=== PATIENT | female | born 1955 | race Caucasian/White ===

== ENCOUNTER 2021-01-13 14:41 | Outpatient (CLI) | payer BC, SELFPAY | END 2021-01-13 14:42 | disposition home or self-care (01) | LOC: ANHCOVIDVC 14:41 | PROVIDERS: PCP Family Medicine | DX: Z23 Encounter for immunization (principal) | CPT/HCPCS: 0001A; 91300 ==

== ENCOUNTER 2021-02-03 14:43 | Outpatient (CLI) | payer BC, SELFPAY | END 2021-02-03 14:44 | disposition home or self-care (01) | LOC: ANHCOVIDVC 14:43 | PROVIDERS: PCP Family Medicine | DX: Z23 Encounter for immunization (principal) | CPT/HCPCS: 0002A; 91300 ==

== ENCOUNTER 2021-03-13 13:38 | Outpatient (CLI) | payer BC, SELFPAY ==
--- NOTE | ~2021-03-13 | MR_ITS ---
EXAMINATION: MR lumbar spine wo con DATE: 03/13/2021 14:54 INDICATION: Low back pain. TECHNIQUE: Magnetic resonance imaging (MRI) of the lumbar spine was performed without intravenous con trast. Sequences included sagittal T2-weighted FSE, sagittal T2-weighted FS FSE, sagittal T1-weighted FSE, and axial T2-weighted FSE. COMPARISON: None FINDINGS: Bone alignment is normal. There is mild chronic height loss of T10 and T11 vertebral bodies . Intervertebral disc heights are normal. The distal spinal cord signal intensity is normal. The conu s medullaris is at L1-L2. There are peripelvic cysts in the kidneys. The following disc levels are sp ecifically discussed: L1-L2: The disc does not extend beyond the endplate margin. There is mild bilateral facet joint osteo arthritis. There is no neural foraminal stenosis. There is no central canal stenosis. L2-L3: The disc is bulging. There is mild bilateral facet joint osteoarthritis. There is mild left ne ural foraminal stenosis. There is mild central canal stenosis. L3-L4: The disc is bulging. There is severe bilateral facet joint osteoarthritis. There is no neural foraminal stenosis. There is mild central canal stenosis. L4-L5: There is a right foraminal protrusion. There is severe bilateral facet joint osteoarthritis. T here is mild right neural foraminal stenosis. There is no central canal stenosis. L5-S1: The disc is mildly bulging. There is severe bilateral facet joint osteoarthritis. There is mil d bilateral neural foraminal stenosis. There is no central canal stenosis. IMPRESSION: 1. Mild lumbar spondylosis. Reviewed, dictated and finalized at location A. IMPRESSION: 1. Mild lumbar spondylosis.
== END 2021-03-13 13:39 | disposition home or self-care (01) ==
PROVIDERS: PCP Family Medicine; Visit Provider Orthopaedic Surgery
DX: M47.896 Other spondylosis, lumbar region (principal)
CPT/HCPCS: 72148

== ENCOUNTER 2021-04-20 15:03 | Outpatient (CLI) | payer BC, SELFPAY ==
--- NOTE | ~2021-04-20 | US_ITS ---
EXAMINATION: US renal BI EXAM DATE: 04/20/2021 15:33 INDICATION: N28.1 - Cyst of kidney, acquired. TECHNIQUE: Multiple grayscale and Doppler images of the kidneys were obtained (by a technologist who performed the scan) and subsequently reviewed. There is no prior study for comparison. FINDINGS: Right kidney: There is normal contour and echogenicity. It measures 12.7 x 5.1 x 5.2 centimeters. Th ere is a cyst measuring 1 cm. There is no hydronephrosis. Left kidney: There is normal contour and echogenicity. It measures 12.3 x 5.9 x 5.6 centimeters. Pro bable left renal peripelvic cysts. There is no hydronephrosis. Bladder unremarkable. The ureteral jets were identified. IMPRESSION: 1. Renal cysts. Reviewed, dictated and finalized at location A. IMPRESSION: 1. Renal cysts.
== END 2021-04-20 15:04 | disposition home or self-care (01) ==
LOC: ANHIMG 15:05
PROVIDERS: PCP Family Medicine; Visit Provider Family Medicine
DX: N28.1 Cyst of kidney, acquired (principal)
CPT/HCPCS: 76775

== ENCOUNTER 2021-08-19 15:26 | Emergency (ER) | payer OTHER, SELFPAY ==
[2021-08-19 15:37] VITALS: BP 188/77; PULSE 80; RESP 14; TEMP 36.8; O2SAT 99
[2021-08-19 17:02] LABS: Basophils Absolute Auto 0.1 K/mm3 (0.0-0.1); Eosinophils Absolute Auto 0.8 K/mm3 (0-0.3); Eosinophils Percent Auto 9.3 % (0-4.4); Hematocrit 40.5 % (37.0-47.0); Hemoglobin 13.1 g/dL (12.0-15.0); Immature Granulocyte Absolute 0.06 K/mm3 (0.00-0.031); Immature Granulocyte Percent A 0.7 % (0-0.5); Lymphocytes Absolute Auto 2.38 K/mm3 (0.9-3.2); Lymphocytes Percent Auto 27.3 % (18.3-44.2); Mean Corpuscular HGB Conc 32.3 g/dl (32-36); Mean Corpuscular Hemoglobin 29.5 pg (26-34); Mean Corpuscular Volume 91.2 fl (80-100); Mean Platelet Volume 8.8 fl (7.4-10.4); Monocytes Absolute Auto 0.9 K/mm3 (0.1-0.6); Monocytes Percent Auto 10.1 % (2.6-8.5); Neutrophils Absolute Auto 4.5 K/mm3 (1.3-6.7); Neutrophils Percent Auto 51.6 % (45.5-73.1); Platelet Count Result 492 k/mm3 (150-375); Red Blood Count 4.44 M/mm3 (4.2-5.4); Red Cell Distribution Width 13.6 % (11.5-14.5); White Blood Count 8.7 K/mm3 (4.5-10.0)
[2021-08-19 17:15] LABS: Add Urine Microscopic? YES; Anion Gap 8 mmol/L (8-16); Appearance Urine Cloudy (Clear); Bacteria Urine Trace /hpf; Bilirubin Urine Negative (Negative); Blood Urea Nitrogen 11 mg/dL (7-17); Blood Urine Negative (Negative); Calcium 9.7 mg/dL (8.4-10.2); Carbon Dioxide 26 mmol/L (22-30); Chloride 107 mmol/L (98-107); Color Urine Yellow (Yellow); Estimated CRCL calculation 71 ml/min; Estimated Glomerular Filt Rate > 60; Glucose 105 mg/dL (65-110); Glucose Urine UA Negative (Negative); Ketones Urine Trace mg/dL (Negative); Leukocyte Esterase Ur Negative LEU/UL (Negative); Mucus Urine Few /lpf; Nitrate Urine Negative (Negative); Potassium 3.9 mmol/L (3.4-5.0); Protein Urine Negative (Negative); RBC Urine 0-2 /hpf (0-2); Sodium 141 mmol/L (137-145); Squamous Epithelial Cell Urine Few /hpf (Few); WBC Urine 0-3 /hpf
--- NOTE | 2021-08-19 18:04 | ED.BACK ---
HPI - Back Pain/Injury General Chief Complaint: Back Pain/Injury Stated Complaint: left flank pain Time Seen by Provider: 08/19/21 16:14 Source: patient Mode of arrival: ambulatory Limitations: no limitations History of Present Illness HPI Narrative: 66-year-old with a history of chronic low back pain, hypertension here with complaints of low back pain for past few days. She denies any falls. She is worried about UTI. She denies any fever or chills. No history of bladder or bowel incontinence. She also complains of intense itching on her back and her thighs. See MD elicited complaint: back pain Pertinent past history: prior back pain Onset (ago): day(s) (3) Severity: moderate Similar Symptoms Previously: Yes Quality: dull Location: lumbar spine Radiation: none Exacerbating factors: none Relieving factors: none Associated symptoms: denies other symptoms Related Data Home Medications Medication Instructions Recorded Confirmed methylcellulose (laxative) 500 mg 500 mg PO BID 08/13/20 tablet Saccharomyces boulardii 250 mg 250 mg PO BID 06/19/21 capsule Allergies Allergy/AdvReac Type Severity Reaction Status Date / Time tetracycline Allergy Mild Unknown Verified 06/19/21 13:52 Review of Systems Review of Systems: All systems reviewed & are unremarkable except as noted in HPI and below Constitutional: Constitutional: Reports no additional constitutional complaints Eyes: Eyes: Reports no additional eye complaints ENT: Reports system reviewed and no additional complaints, except as documented Cardiovascular: Cardiovascular: Reports no additional cardiovascular complaints Respiratory: Respiratory: Reports no additional respiratory complaints Gastrointestinal: Gastrointestinal: Reports no additional gastrointestinal complaints Musculoskeletal: Musculoskeletal: Reports as per HPI Integumentary/Breasts: Skin/Breast: Reports pruritus Neurologic: Reports system reviewed and no additional complaints, except as documented [facility] Past Medical History Medical History Carpal tunnel syndrome of left wrist DDD (degenerative disc disease), lumbar Ganglion cyst HLD (hyperlipidemia) Obesity, Class III, BMI 40-49.9 (morbid obesity) Positive JOSE (antinuclear antibody) Renal cyst Thrombocytosis Surgical History Surgical History H/O shoulder surgery (~2018) left History of carpal tunnel surgery (~2018) Family History Family History Mother Diabetes mellitus Hypertension Father Heart attack Social History Social History Smoking status: Never smoker Second hand tobacco smoke exposure: No Alcohol intake: never Substance use: never Substance use type: does not use Gender identity (if verbalized by the patient): Female Sexual Orientation (if Verbalized by the Patient): Straight or Heterosexual Exam Narrative: GENERAL: Well-appearing, Obese, and in no acute distress. HEAD: Normocephalic, atraumatic. EYES: PERRLA and EOMI. NECK: Supple. CHEST: Clear to auscultation. No respiratory distress. HEART: Regular rate and rhythm. No murmur heard. Normal peripheral pulses. ABDOMEN: Soft, nontender, nondistended, normal active bowel sounds. EXTREMITIES: Normal range of motion. No edema. Back Surgical scar present ,no vertebral point tnderness SKIN: Warm, dry, no rash. NEURO: No focal deficits. Alert and oriented x3. PSYCH: Normal mood and affect. Course Course Emergency Course: informed pt about her lab work , advised her to continue home medication, take medications as prescribed. Vital Signs Vital signs: Vital Signs Temperature 36.8 C 08/19/21 15:37 Pulse Rate 80 08/19/21 15:37 Respiratory Rate 14 08/19/21 15:37 Blood Pressure 188/77 H 08/19/21 15:37 Pulse Oxi
== END 2021-08-19 18:15 | disposition home or self-care (01) ==
PROVIDERS: Emergency Provider Family Medicine; PCP Family Medicine
DX: M54.50 Low back pain, unspecified (principal); E78.5 Hyperlipidemia, unspecified
CPT/HCPCS: 36415; 80048; 81001; 85025; 99283

== ENCOUNTER 2022-02-20 11:02 | Inpatient (IN) | payer OTHER, SELFPAY ==
--- NOTE | ~2022-02-20 | XR_ITS ---
EXAMINATION: XR surgery orthopedic DATE: 02/22/2022 13:30 CDT INDICATION: ORIF LEFT PATELLA . TECHNIQUE: 2 fluoroscopic images of the left were obtained during intraoperative ORIF performed by ida greer surgeon. I was not present in the operating room. Fluoroscopy exposure time was 3 seconds. Cumulati ve dose 0.34 mGy. COMPARISON: X-ray and CT left knee 02/20/2022. FINDINGS: AP and lateral views of the left knee demonstrate the known left patellar fracture, with decreased di straction. IMPRESSION: Fluoroscopic documentation of left patellar ORIF. Reviewed, dictated and finalized at location K.
--- NOTE | ~2022-02-20 | CT_ITS ---
EXAMINATION: CT knee LT wo con DATE: 02/20/2022 13:25 INDICATION: Left patellar fracture TECHNIQUE: High resolution computed tomography (CT) of the left knee was performed without intravenou s contrast. Additional sagittal and coronal reconstructions were performed. Automated exposure contro l and iterative reconstruction technique were employed. The dose-length product was 478.82 mGy-cm. COMPARISON: None FINDINGS: And seen is a transverse fracture extending across the lower pole of the patella. There is comminutio n of the inferior portion of the patella which divided into several smaller fragments without signifi cant displacement. There is additional small fracture fragment associated with the dominant patellar fragment which compresses the cephalad two thirds of the patella and which is proximally distracted a pproximately 1.5 cm from the lower pole fragments. No other fractures identified. Joint spaces in the medial and lateral compartments appear normal on nonweightbearing imaging. Minimal left knee hemarth rosis without layering fat level. Prepatellar soft tissue swelling. IMPRESSION: 1. 1.5 cm distraction of a comminuted patellar fracture as detailed above. Reviewed, dictated and finalized at location A.
--- NOTE | ~2022-02-20 | XR_ITS ---
EXAMINATION: XR knee LT 3V DATE: 02/20/2022 11:24 INDICATION: Left knee dislocation TECHNIQUE: Anteroposterior, oblique and crosstable lateral views of the left knee were obtained COMPARISON: None. FINDINGS: Transverse fracture extending across the lower pole of the patella with 2 cm distraction and mild com minution along the fracture plane. Femur, tibia and fibula remain in normal alignment. Joint spaces a ppear relatively preserved on nonweightbearing imaging. No left knee joint effusion. Mild prepatellar soft tissue swelling. IMPRESSION: 1. 2 cm distraction of a transverse fracture across the lower pole of the patella. Reviewed, dictated and finalized at location A. IMPRESSION: 1. 2 cm distraction of a transverse fracture across the lower pole of the salazar la.
--- NOTE | ~2022-02-20 | XR_ITS ---
EXAMINATION: XR chest 1V portable DATE: 02/20/2022 14:36 INDICATION: Preoperative evaluation with risk factors of hyperlipidemia and hypertension. TECHNIQUE: frontal view of the chest was obtained. COMPARISON: None FINDINGS: The lungs are clear with no focal airspace opacities, pulmonary edema, pleural effusion or pneumothor ax. The cardiomediastinal silhouette is normal. Visualized bones and soft tissues are unremarkable. IMPRESSION: 1. No acute cardiopulmonary disease. Reviewed, dictated and finalized at location A.
[2022-02-20 11:06] VITALS: BP 142/76; PULSE 79; RESP 17; TEMP 36.6; O2SAT 96
--- NOTE | 2022-02-20 12:11 | ED.LOWEXIN ---
HPI - Extremity Injury (Lower) General Chief Complaint: Extremity Injury, Lower Stated Complaint: left knee deformity Time Seen by Provider: 02/20/22 11:35 Related Data Home Medications Medication Instructions Recorded Confirmed Saccharomyces boulardii 250 mg 250 mg PO BID 06/19/21 02/20/22 capsule (Florastor) folic acid 1 mg tablet 1 mg PO QAM supplement 02/20/22 02/20/22 gabapentin 300 mg capsule 600 mg PO TID 02/20/22 02/22/22 methotrexate sodium 2.5 mg tablet 15 mg PO WEEKLY 02/22/22 02/22/22 Allergies Allergy/AdvReac Type Severity Reaction Status Date / Time tetracycline AdvReac Mild yeast Verified 02/22/22 12:05 infection [facility] Past Medical History Medical History (Updated 02/20/22 @ 14:23 by Mary Bowie PA-C) Depression with anxiety Eczema Followed by dermatology at [facility]. On methotrexate. Hyperlipidemia Hypertension Positive antinuclear antibody Renal cyst Thrombocytosis Surgical History Surgical History (Updated 02/20/22 @ 14:20 by Mary Bowie PA-C) History of arthroscopy of left shoulder (~2018) History of carpal tunnel surgery (~2019) Family History Family History Mother Diabetes mellitus Hypertension Father Heart attack Social History Social History (Updated 02/20/22 @ 14:21 by Mary Bowie PA-C) Social History: Surrogate decision-maker: Zohra Bucio, sister. CODE STATUS: Full code. Smoking status: Never smoker Second hand tobacco smoke exposure: No Alcohol intake: never Substance use: never Living arrangements: alone Additional living arrangements comments: Recently . No children. Occupation/Education: retired Spiritual care concerns: No Course Vital Signs Vital signs: Vital Signs Temperature 97.8 F 02/20/22 11:06 Pulse Rate 79 02/20/22 11:06 Respiratory Rate 17 02/20/22 11:06 Blood Pressure 142/76 H 02/20/22 11:06 Pulse Oximetry 96 02/20/22 11:06 Temperature 97.3 F L 02/24/22 14:00 Pulse Rate 81 02/24/22 14:00 Respiratory Rate 18 02/24/22 14:00 Blood Pressure 112/48 L 02/24/22 14:00 Pulse Oximetry 100 02/24/22 14:00 Oxygen Delivery Room Air 02/24/22 08:00 Oxygen Flow Rate 6 02/22/22 15:17 MDM - Extremity Injury (Lower) Lab Data Result diagrams: 02/24/22 06:02 02/24/22 06:02 Labs: Lab Results 02/20/22 02/20/22 02/20/22 Range/Units 12:36 12:36 12:36 WBC 12.5 H (4.5-10.0) K/mm3 RBC 4.76 (4.2-5.4) M/mm3 Hgb 13.7 (12.0-15.0) g/dL Hct 43.6 (37.0-47.0) % MCV 91.6 (80-100) fl MCH 28.8 (26-34) pg MCHC 31.4 L (32-36) g/dl RDW 15.2 H (11.5-14.5) % Plt Count 506 H (150-375) k/mm3 MPV 9.1 (7.4-10.4) fl Immature Gran % (Auto) 0.5 (0-0.5) % Neut % (Auto) 69.1 (45.5-73.1) % Lymph % (Auto) 12.9 L (18.3-44.2) % [place] % (Auto) 6.0 (2.6-8.5) % Eos % (Auto) 10.8 H (0-4.4) % Baso % (Auto) 0.7 (0.2-1.2) % Lymph # (Auto) 1.61 (0.9-3.2) K/mm3 [place] # (Auto) 0.8 H (0.1-0.6) K/mm3 Eos # (Auto) 1.4 H (0-0.3) K/mm3 Baso # (Auto) 0.1 (0.0-0.1) K/mm3 Abs Immat Gran (auto) 0.06 H (0.00-0.031) K/mm3 Absolute Neuts (auto) 8.6 H (1.3-6.7) K/mm3 Absolute Nucleated RBC 0.0 (0.0-0.012) K/mm3 Nucleated RBC % 0.0 (0.0-0.2) % Sodium 142 (137-145) mmol/L Potassium 3.8 (3.4-5.0) mmol/L Chloride 107 (98-107) mmol/L Carbon Dioxide 27 (22-30) mmol/L Anion Gap 8 (8-16) mmol/L BUN 8 (7-17) mg/dL Creatinine 0.80 (0.7-1.0) mg/dL Estim Creat Clear Calc 74 ml/min Estimated GFR > 60 (59 - ) Glucose 107 (65-110) mg/dL Calcium 9.2 (8.4-10.2) mg/dL Magnesium (1.6-2.3) mg/dL Total Bilirubin (0.2-1.3) mg/dL AST (14-36) U/L ALT (6-35) U/L Alkaline Phosphatase (38-126) U/L Total Protein (6.3-8.2) g/dL Albumin (3.5
--- NOTE | 2022-02-20 12:16 | ECG_ITS ---
Measurements Intervals [place] Rate: 63 P: 48 DE: 185 QRS: -1 QRSD: 76 T: 56 QT: 358 QTc: 367 Interpretive Statements SINUS RHYTHM LOW QRS VOLTAGE IN PRECORDIAL LEADS BASELINE ARTIFACT- I, III BORDERLINE ECG Electronically Signed On 02-20-2022 17:00:55 CDT by Emmanuel Rivera D.O.
[2022-02-20] MEDS: HYDROcodone/acetaminophen (*CRX) 5-325 MG TABLET 1 TAB PO ×2 (12:26→15:40)
[2022-02-20 12:44] LABS: Basophils Absolute Auto 0.1 K/mm3 (0.0-0.1); Basophils Percent Auto 0.7 % (0.2-1.2); Eosinophils Absolute Auto 1.4 K/mm3 (0-0.3); Eosinophils Percent Auto 10.8 % (0-4.4); Hematocrit 43.6 % (37.0-47.0); Hemoglobin 13.7 g/dL (12.0-15.0); Immature Granulocyte Absolute 0.06 K/mm3 (0.00-0.031); Immature Granulocyte Percent A 0.5 % (0-0.5); Lymphocytes Absolute Auto 1.61 K/mm3 (0.9-3.2); Lymphocytes Percent Auto 12.9 % (18.3-44.2); Mean Corpuscular HGB Conc 31.4 g/dl (32-36); Mean Corpuscular Hemoglobin 28.8 pg (26-34); Mean Corpuscular Volume 91.6 fl (80-100); Mean Platelet Volume 9.1 fl (7.4-10.4); Monocytes Absolute Auto 0.8 K/mm3 (0.1-0.6); Neutrophils Absolute Auto 8.6 K/mm3 (1.3-6.7); Neutrophils Percent Auto 69.1 % (45.5-73.1); Platelet Count Result 506 k/mm3 (150-375); Red Blood Count 4.76 M/mm3 (4.2-5.4); Red Cell Distribution Width 15.2 % (11.5-14.5); White Blood Count 12.5 K/mm3 (4.5-10.0)
[2022-02-20 12:53] LABS: Anion Gap 8 mmol/L (8-16); Blood Urea Nitrogen 8 mg/dL (7-17); Calcium 9.2 mg/dL (8.4-10.2); Carbon Dioxide 27 mmol/L (22-30); Chloride 107 mmol/L (98-107); Estimated CRCL calculation 74 ml/min; Estimated Glomerular Filt Rate > 60; Glucose 107 mg/dL (65-110); Potassium 3.8 mmol/L (3.4-5.0); Sodium 142 mmol/L (137-145)
[2022-02-20 13:25] LABS: SARS-CoV-2 RNA PCR Negative
--- NOTE | 2022-02-20 13:25 | PM.IMHP ---
H&P: HPI History of Present Illness Date/Time: 02/20/22 13:25 Chief Complaint: Left knee pain after fall. Narrative: This is a 66-year-old female with hypertension, depression, and eczema who presented to the emergency department for evaluation of left knee pain after a fall. Not long prior to arrival she went out onto her back deck to chicken picker a fallen plant. The deck was wet and she was not wearing shoes. Unfortunately when she reentered the home, she slipped on the laminate parminder and fell forward onto her knees with immediate pain in her left knee. She was able to scoot herself to her bedroom to get her cell phone to call for help. Imaging done on arrival to the ER showed a comminuted fracture of the left patella and she is being admitted in this setting. Luckily she sustained no other injuries in the fall and she specifically denies head trauma. At this time her pain is aching and is worse with palpation and attempts to bend the knee. No paresthesias, skin color, or temperature changes distal to the fracture. Review of Systems Review of Systems: 12 systems were reviewed. No fever, chills, or sweats. No recent cold or flu symptoms. No syncope or near syncope. No exertional chest pain or shortness of breath. No nausea or vomiting. She has been battling eczema for the last 8 months or so and was recently started on methotrexate for the same. Except as documented, all other systems were reviewed and are negative PMFSH Past Medical History Medical History (Updated 02/20/22 @ 14:23 by Mary Bowie PA-C) Depression with anxiety Eczema Followed by dermatology at [facility]. On methotrexate. Hyperlipidemia Hypertension Positive antinuclear antibody Renal cyst Thrombocytosis Surgical History Surgical History (Updated 02/20/22 @ 14:20 by Mary Bowie PA-C) History of arthroscopy of left shoulder (~2019) History of carpal tunnel surgery (~2019) Family History Family History Mother Diabetes mellitus Hypertension Father Heart attack Social History Social History (Updated 02/20/22 @ 14:21 by Mary Bowie PA-C) Social History: Surrogate decision-maker: Zohra Rupinder, sister. CODE STATUS: Full code. Smoking status: Never smoker Second hand tobacco smoke exposure: No Alcohol intake: never Substance use: never Living arrangements: alone Additional living arrangements comments: Recently . No children. Occupation/Education: retired Spiritual care concerns: No Meds Home Medications and Allergies Home Medications Medication Instructions Recorded Confirmed Type Saccharomyces boulardii 250 mg 250 mg PO BID 06/19/21 02/20/22 History capsule lisinopril 20 mg tablet 20 mg PO DAILY #90 tablet 12/08/21 02/20/22 Rx folic acid 1 mg PO QAM 02/20/22 02/20/22 History gabapentin 300 mg PO TID 02/20/22 02/20/22 History Allergies Allergy/AdvReac Type Severity Reaction Status Date / Time tetracycline Allergy Mild Unknown Verified 02/20/22 11:09 Vital Signs Vital Signs - 24 hr 02/20/22 11:06 Temperature 97.8 F Pulse Rate 79 Respiratory Rate 17 Blood Pressure 142/76 H Pulse Oximetry 96 Exam Narrative: General: Well-developed female in semi-Eaton position in bed. Weight: 100.9 kilograms. BMI: 35.9 HEENT: Normocephalic, atraumatic. PERRL, EOMI. Sclerae anicteric. Oral mucosa moist. Neck: Supple. Respiratory: Lungs are clear to auscultation bilaterally. Cardiovascular: Regular rate and rhythm with S1-S2. Gastrointestinal: Abdomen is soft, obese, nontender, and nondistended with positive bowel sounds. No organomegaly. Skin: Warm and dry. Skin is dry. She frequently scratches her forearms and palms. Minor abrasions on the left forearm and right elbow Extremities: No cyanosis, clubbing, or edema. Radial and pedal pulses intact. Musculoskeletal: Left knee is swollen and she complains of pain with palpati
[2022-02-20 13:56] VITALS: BP 122/84; PULSE 78; RESP 16; O2SAT 100
[2022-02-20 15:07] VITALS: BP 126/59; PULSE 70; RESP 14; TEMP 36.6; O2SAT 98
[2022-02-20 15:14] VITALS: BP 126/59; PULSE 70; RESP 14; TEMP 36.6; O2SAT 98
--- NOTE | 2022-02-20 15:14 | PC.NURSE ---
This patient, Dinah Hagen, was admitted to 2 Medical Room 261-01. Patient/family oriented to hospital policies and general routines including ID bracelet, bed and alarms, visiting hours, pain management, procedures, bathroom and other care routines, personal items, smoking policy, room service/diet, and visiting hours. Information on how to activate the Rapid Response Team has been discussed. Patient/Family are encouraged to report perceived risks to care and to ask questions if they do not understand what they are told or what they should do.
--- NOTE | 2022-02-20 17:25 | WPDANESEPP ---
Anes - Eval Pre Procedure Procedure: ORIF L patella Date/Time: 02/20/22 17:25 Surgeon: michael Pre Op Diagnosis: Left Patella Fx Patient Data Age: 66 Gender: F Height: 1.68 m Weight: 100.9 kg Last Vital Signs Temp 36.6 C 02/20/22 15:14 Pulse 70 02/20/22 15:14 Resp 14 02/20/22 15:14 BP 126/59 L 02/20/22 15:14 Pulse Ox 98 02/20/22 15:14 Allergies Allergy/AdvReac Type Severity Reaction Status Date / Time tetracycline Allergy Mild Unknown Verified 02/20/22 11:09 Home Medications Medication Instructions Recorded Confirmed Type Saccharomyces boulardii 250 mg 250 mg PO BID 06/19/21 02/20/22 History capsule lisinopril 20 mg tablet 20 mg PO DAILY #90 tablet 12/08/21 02/20/22 Rx folic acid 1 mg PO QAM 02/20/22 02/20/22 History gabapentin 300 mg PO TID 02/20/22 02/20/22 History Laboratory Tests 02/20/22 02/20/22 02/20/22 12:36 12:36 12:36 WBC 12.5 K/mm3 H K/mm3 (4.5-10.0) RBC 4.76 M/mm3 M/mm3 (4.2-5.4) Hgb 13.7 g/dL g/dL (12.0-15.0) Hct 43.6 % % (37.0-47.0) MCV 91.6 fl fl (80-100) MCH 28.8 pg pg (26-34) MCHC 31.4 g/dl L g/dl (32-36) RDW 15.2 % H % (11.5-14.5) Plt Count 506 k/mm3 H k/mm3 (150-375) MPV 9.1 fl fl (7.4-10.4) Immature Gran % (Auto) 0.5 % % (0-0.5) Neut % (Auto) 69.1 % % (45.5-73.1) Lymph % (Auto) 12.9 % L % (18.3-44.2) [place] % (Auto) 6.0 % % (2.6-8.5) Eos % (Auto) 10.8 % H % (0-4.4) Baso % (Auto) 0.7 % % (0.2-1.2) Lymph # (Auto) 1.61 K/mm3 K/mm3 (0.9-3.2) [place] # (Auto) 0.8 K/mm3 H K/mm3 (0.1-0.6) Eos # (Auto) 1.4 K/mm3 H K/mm3 (0-0.3) Baso # (Auto) 0.1 K/mm3 K/mm3 (0.0-0.1) Abs Immat Gran (auto) 0.06 K/mm3 H K/mm3 (0.00-0.031) Absolute Neuts (auto) 8.6 K/mm3 H K/mm3 (1.3-6.7) Absolute Nucleated RBC 0.0 K/mm3 K/mm3 (0.0-0.012) Nucleated RBC % 0.0 % % (0.0-0.2) Sodium 142 mmol/L mmol/L (137-145) Potassium 3.8 mmol/L mmol/L (3.4-5.0) Chloride 107 mmol/L mmol/L (98-107) Carbon Dioxide 27 mmol/L mmol/L (22-30) Anion Gap 8 mmol/L mmol/L (8-16) BUN 8 mg/dL mg/dL (7-17) Creatinine 0.80 mg/dL mg/dL (0.7-1.0) Estim Creat Clear Calc 74 ml/min ml/min Estimated GFR > 60 (59 - ) Glucose 107 mg/dL mg/dL (65-110) Calcium 9.2 mg/dL mg/dL (8.4-10.2) SARS-CoV-2 RNA (RT-PCR) Negative Patient hx anesthesia problems: none Family hx anesthesia problems: none Results Review: All pre-operative results and documents have been reviewed as part of the pre-operative evaluation. [facility] Past Medical History Medical History (Updated 02/20/22 @ 14:23 by Mary Bowie PA-C) Depression with anxiety Eczema Followed by dermatology at [facility]. On methotrexate. Hyperlipidemia Hypertension Positive antinuclear antibody Renal cyst Thrombocytosis Surgical History Surgical History (Updated 02/20/22 @ 14:20 by Mary Bowie PA-C) History of arthroscopy of left shoulder (~2018) History of carpal tunnel surgery (~2019) Family History Family History Mother Diabetes mellitus Hypertension Father Heart attack Social History Social History (Updated 02/20/22 @ 14:21 by Mary Bowie PA-C) Social History: Surrogate decision-maker: Zohra Bucio, sister. CODE STATUS: Full code. Smoking status: Never smoker Second hand tobacco smoke exposure: No Alcohol intake: never Substance use: never Living arrangements: alone Additional living arrangements comments: Recently . No children. Occupation/Education: retired Spiritual care concerns: No Exam Day of Procedure 02/20/22 1
[2022-02-20] MEDS: oxyCODONE/ACETAMINOPHEN (*CRX) 5-325 MG TABLET 1 TABLET PO (19:25)
[2022-02-20] MEDS: ENOXAPARIN 30 MG/0.3 ML SYRINGE SUB-Q (20:00)
[2022-02-20 21:59] VITALS: BP 126/72; PULSE 84; RESP 16; TEMP 37.3; O2SAT 98
[2022-02-20 22:00] VITALS: BP 126/72; PULSE 84; RESP 16; TEMP 37.3; O2SAT 98
[2022-02-21] MEDS: oxyCODONE/ACETAMINOPHEN (*CRX) 5-325 MG TABLET 1 TABLET PO ×3 (00:19→20:37)
[2022-02-21 05:29] LABS: Hematocrit 38.3 % (37.0-47.0); Hemoglobin 11.8 g/dL (12.0-15.0); Mean Corpuscular HGB Conc 30.8 g/dl (32-36); Mean Corpuscular Hemoglobin 28.8 pg (26-34); Mean Corpuscular Volume 93.4 fl (80-100); Mean Platelet Volume 9.3 fl (7.4-10.4); Platelet Count Result 439 k/mm3 (150-375); Red Cell Distribution Width 15.3 % (11.5-14.5)
[2022-02-21 05:35] LABS: Alanine Aminotransferase 18 U/L (6-35); Albumin Level 3.7 g/dL (3.5-5.1); Alkaline Phosphatase 70 U/L (38-126); Anion Gap 8 mmol/L (8-16); Aspartate Amino Transferase 21 U/L (14-36); Bilirubin,Total 0.6 mg/dL (0.2-1.3); Blood Urea Nitrogen 7 mg/dL (7-17); Calcium 8.2 mg/dL (8.4-10.2); Carbon Dioxide 21 mmol/L (22-30); Chloride 105 mmol/L (98-107); Estimated CRCL calculation 84 ml/min; Estimated Glomerular Filt Rate > 60; Glucose 113 mg/dL (65-110); Sodium 134 mmol/L (137-145)
[2022-02-21 06:09] LABS: Vitamin D 25 Hydroxy < 12.8 ng/mL
[2022-02-21] MEDS: ENOXAPARIN 30 MG/0.3 ML SYRINGE SUB-Q (08:06)
[2022-02-21] MEDS: HYDROcodone/acetaminophen (*CRX) 5-325 MG TABLET 1 TAB PO (08:08)
[2022-02-21] MEDS: FOLIC ACID 1 MG TABLET PO (08:08)
[2022-02-21] MEDS: SACCHAROMYCES BOULARDII 250 MG CAPSULE PO ×2 (08:08→16:23)
[2022-02-21] MEDS: lisinopriL 20 MG TABLET PO (08:08)
[2022-02-21] MEDS: GABAPENTIN 300 MG CAPSULE PO ×3 (08:08→16:23)
--- NOTE | 2022-02-21 08:08 | PCPTNOTE ---
Pt refused any therapy until after her surgery on 02/22. Will initiate PT after ORIF completed.
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
[2022-02-21] MEDS: ERGOCALCIFEROL 50,000 UNIT CAPSULE 50000 UNITS PO (12:23)
[2022-02-21 14:00] VITALS: BP 104/96; PULSE 74; RESP 16; TEMP 37.4; O2SAT 97
[2022-02-21] MEDS: DOCUSATE SODIUM 100 MG CAPSULE PO (14:10)
[2022-02-21 22:00] VITALS: BP 103/48; PULSE 79; RESP 21; TEMP 36.2; O2SAT 100
[2022-02-22] VITALS (13 sets, daily range): BP systolic 105–141; BP diastolic 46–70; PULSE 60–85; RESP 16–20; TEMP 36.1–37.1; O2SAT 93–100
[2022-02-22] MEDS: oxyCODONE/ACETAMINOPHEN (*CRX) 5-325 MG TABLET 1 TABLET PO (05:44)
[2022-02-22 06:15] LABS: Basophils Absolute Auto 0.1 K/mm3 (0.0-0.1); Basophils Percent Auto 0.8 % (0.2-1.2); Eosinophils Percent Auto 17.7 % (0-4.4); Hematocrit 37.2 % (37.0-47.0); Hemoglobin 11.5 g/dL (12.0-15.0); Immature Granulocyte Absolute 0.12 K/mm3 (0.00-0.031); Immature Granulocyte Percent A 1.1 % (0-0.5); Lymphocytes Absolute Auto 2.04 K/mm3 (0.9-3.2); Lymphocytes Percent Auto 18.3 % (18.3-44.2); Mean Corpuscular HGB Conc 30.9 g/dl (32-36); Mean Corpuscular Hemoglobin 28.9 pg (26-34); Mean Corpuscular Volume 93.5 fl (80-100); Mean Platelet Volume 9.6 fl (7.4-10.4); Monocytes Absolute Auto 1.2 K/mm3 (0.1-0.6); Monocytes Percent Auto 10.9 % (2.6-8.5); Neutrophils Absolute Auto 5.7 K/mm3 (1.3-6.7); Neutrophils Percent Auto 51.2 % (45.5-73.1); Platelet Count Result 451 k/mm3 (150-375); Red Blood Count 3.98 M/mm3 (4.2-5.4); Red Cell Distribution Width 15.3 % (11.5-14.5); White Blood Count 11.2 K/mm3 (4.5-10.0)
[2022-02-22 06:38] LABS: Alanine Aminotransferase 17 U/L (6-35); Albumin Level 3.6 g/dL (3.5-5.1); Alkaline Phosphatase 68 U/L (38-126); Anion Gap 7 mmol/L (8-16); Aspartate Amino Transferase 19 U/L (14-36); Bilirubin,Total 0.5 mg/dL (0.2-1.3); Blood Urea Nitrogen 10 mg/dL (7-17); Calcium 8.5 mg/dL (8.4-10.2); Carbon Dioxide 23 mmol/L (22-30); Chloride 104 mmol/L (98-107); Estimated CRCL calculation 74 ml/min; Estimated Glomerular Filt Rate > 60; Glucose 118 mg/dL (65-110); Magnesium 2.2 mg/dL (1.6-2.3); Potassium 4.1 mmol/L (3.4-5.0); Sodium 134 mmol/L (137-145)
[2022-02-22] MEDS: FOLIC ACID 1 MG TABLET PO (08:16)
[2022-02-22] MEDS: GABAPENTIN 300 MG CAPSULE PO (08:17)
[2022-02-22] MEDS: SACCHAROMYCES BOULARDII 250 MG CAPSULE PO ×2 (08:17→16:59)
[2022-02-22] MEDS: lisinopriL 20 MG TABLET PO (08:17)
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
--- NOTE | 2022-02-22 11:46 | PC.NURSE ---
Patient transported to surgery at 1145am
[2022-02-22] MEDS: LACTATED RINGERS 1,000 ML 30 ML IV CONT ×2 (12:00→15:21)
--- NOTE | 2022-02-22 12:09 | WPDANESEFPP ---
Anes - Eval Final PreProcedure Day of Procedure 02/22/22 12:09 Patient weight: morbidly obese Heart: regular rate and rhythm Lungs: clear to auscultation Airway: Mallampati scale class II Neurological: alert and oriented Last oral intake: >/= 8 hours ASA classification: III Emergent: no Anesthetic plan: proceed Anesthesia type and monitoring: general ETT and standard monitoring Results Review: All pre-operative results and documents have been reviewed as part of the pre-operative evaluation. Informed Consent: The patient's anesthetic plan and its attendant risks and benefits were discussed with the patient/family/POA. Questions were solicited and answers provided to the satisfaction of the patient/family/POA.
--- NOTE | 2022-02-22 12:55 | WPDHPUPDATE1 ---
History and Physical Update Update Date/Time: 02/22/22 12:55 History and Physical has been reviewed, including an updated exam of the patient. There are NO changes in the patient's condition. Risks, benefits, and alternatives have been discussed and questions answered. Patient agrees to proceed with procedure.
[2022-02-22] MEDS: ceFAZolin 2 GM/D5W 50 ML 2 GM/50 ML BAG IVPB (13:25)
--- NOTE | 2022-02-22 13:28 | WPDANESPNB ---
Anes - Peripheral Nerve Block Date/Time: 02/22/22 13:28 I have discussed with the patient/family/POA the placement of a peripheral nerve block for post-operative pain management, including associated risks, benefits, complications, and side effects. Alternative methods of post-operative analgesia were detailed. Questions were solicited and answers provided to the satisfaction of the patient/family/POA. Time-Out: A pre-procedural Time-Out was completed immediately before starting the procedure and confirmed: Patient Identification, Site, Procedure, Patient Position and the Availability of Requisite Equipment. Clinical Indications: Acute post-operative pain management requested by the operative surgeon. Nerve Block Insertion Note Anes-nerve block: femoral left Patient position: supine Skin prep: chlorhexidine Needle: 22 gauge, stimulating, insulated echogenic needle. Needle length: 80 mm Technique: nerve stimulation lost at (mA) (0.5) Injectate: bupivacaine 0.5% with epi 5 mcg/ml (30cc no epi) and dexamethasone (mg) (8) Observations: tolerated well Complications: none Procedure start time:: 1314 Procedure end time:: 1320
[2022-02-22] MEDS: ceFAZolin SODIUM 1 GM VIAL IRRIGATION (15:00)
[2022-02-22] MEDS: ceFAZolin SODIUM 1 GM VIAL IV PUSH (15:02)
--- NOTE | 2022-02-22 15:18 | W.PM.PROC2 ---
Procedure Note - Detailed Date of Procedure 02/22/22 Pre-op Diagnosis Comminuted inferior pole left patella fracture Post-op Diagnosis Same Procedure Performed Open reduction internal fixation left comminuted inferior pole patella fracture Surgeon Jorge Luis Moses MD Outbound Call Center Representative pete Anesthesia General Description of Procedure Patient was brought to the operating room and general anesthesia was administered. The leg was carefully scrubbed with chlorhexidine cloth. She received 2 g Ancef weight based vancomycin preoperatively. Leg was prepped and draped usual fashion all the skin covered with Ioban. 6 in longitudinal incision was made from the superior pole of patella to medial to the tibial tubercle. Prepatellar hematoma was evacuated and fracture exposed. Extensive tearing of medial lateral retinaculum was present. The usual smile pattern was present and the inferior pole of the patella was avulsed in a smile type fashion with more than 10 small fragments of bone. There was 1 larger fragment of bone about 8 mm cubed that the inferior pole fragment. Guidewires from the 4.0 cannulated screw set were inserted and drilled from the fracture to exit the superior pole of the patella parallel and approximately 16 mm apart. Cannulated drill was used to make drill holes. 5. Fiber wires were passed retrograde up the medial hole. A baseball stitch was utilized running locking fashion down and back through the proximal 1/2 the patellar tendon. The 2nd 5. FiberWire was passed down the medial edge of tendon and then passed through drill holes placed on either side of the tibial tubercle and brought up the lateral aspect of patellar tendon coming out of the inferior fragments same location as the previous stitch. The needles were removed and the free ends were passed retrograde through the lateral drill hole in the patella in a retrograde fashion. The tension the patellar tendon based pulse stitch maximally to take out any creep and this stitch was tied down securely after passing the limb through the lateral drill hole underneath the quadriceps tendon to the medial drill hole. Strong knot was tied and with flexion to 90? there was no gapping at the fracture we then repaired the anterior soft tissues of the anterior aspect of patella with 2. Vicryl was which placed numerous tiny fragments of bone as bone graft in the gaps. The central piece was tightly pressed against the inferior patella. The with lateral retinacular tear was closed with 2. Ethibond avoiding excessive tightness there. Finally we tied down the 5. FiberWire it went through the tibial tubercle and this was tightened to the point where the patella moved distally 2 mm. We this did this to off load the direct repair but avoid patella baja. A knot was tied similar fashion after passing the lateral limb under the tendon to the whole superior medial to patella. These knots were then placed within the tendon and secured with Vicryl so they would be intertendinous and not palpable. Skin was closed with 2 7 is Vicryl and glue. EBL was 50 cc. There were no complications 3rd g Ancef given time wound closure. Knee immobilizer was applied Estimated Blood Loss 540 Tourniquet Time 50 Urine Output 350 Drains No Packing No Pathology None sent Complications No immediate complications Condition Stable
[2022-02-22] MEDS: fentaNYL CITRATE INJ (*CRX) 100 MCG/2 ML VIAL 25 MCG IV PUSH ×3 (15:45→16:20)
--- NOTE | 2022-02-22 16:53 | PC.NURSE ---
Returned from surgery at [id number]
[2022-02-22] MEDS: ACETAMINOPHEN 325 MG TABLET 650 MG PO (16:59)
[2022-02-22] MEDS: SODIUM CHLORIDE 0.9% IV 1,000 ML 125 ML IV CONT (16:59)
[2022-02-22] MEDS: oxyCODONE HCL (*CRX) 2.5 MG TAB IR PO ×2 (16:59→20:22)
[2022-02-22] MEDS: GABAPENTIN 300 MG CAPSULE 600 MG PO (16:59)
[2022-02-22] MEDS: SENNA/DOCUSATE SODIUM TABLET 2 TAB PO (18:06)
[2022-02-22] MEDS: FAMOTIDINE 20 MG TABLET PO (20:23)
[2022-02-23] MEDS: ACETAMINOPHEN 325 MG TABLET 650 MG PO ×4 (00:04→18:20)
[2022-02-23] MEDS: oxyCODONE HCL (*CRX) 2.5 MG TAB IR PO ×7 (00:05→20:40)
[2022-02-23 01:49] VITALS: BP 144/72; PULSE 77; RESP 16; TEMP 36.5; O2SAT 95
[2022-02-23 06:00] VITALS: BP 111/50; PULSE 77; RESP 20; TEMP 36.6; O2SAT 96
[2022-02-23 06:43] LABS: Basophils Absolute Auto 0.1 K/mm3 (0.0-0.1); Basophils Percent Auto 0.3 % (0.2-1.2); Eosinophils Absolute Auto 0.1 K/mm3 (0-0.3); Eosinophils Percent Auto 0.5 % (0-4.4); Hematocrit 34.9 % (37.0-47.0); Immature Granulocyte Absolute 0.12 K/mm3 (0.00-0.031); Immature Granulocyte Percent A 0.7 % (0-0.5); Lymphocytes Percent Auto 6.5 % (18.3-44.2); Mean Corpuscular HGB Conc 31.5 g/dl (32-36); Mean Corpuscular Hemoglobin 28.6 pg (26-34); Mean Corpuscular Volume 90.6 fl (80-100); Mean Platelet Volume 9.9 fl (7.4-10.4); Monocytes Percent Auto 11.8 % (2.6-8.5); Neutrophils Absolute Auto 13.7 K/mm3 (1.3-6.7); Neutrophils Percent Auto 80.2 % (45.5-73.1); Platelet Count Result 434 k/mm3 (150-375); Red Blood Count 3.85 M/mm3 (4.2-5.4); Red Cell Distribution Width 15.3 % (11.5-14.5)
--- NOTE | 2022-02-23 06:44 | PM.PNORT ---
Subjective Subjective Date/Time Seen: 02/23/22 06:44POD 1 avss alert pain is controlled, splint on properly, pt to work with PT today, CC working on placement Objective Data Vital Signs Vital Signs: Vital Signs - 24 hr 02/22/22 07:25 02/22/22 13:16 02/22/22 15:17 Temperature 36.1 C L 37.1 C Pulse Rate 73 85 Respiratory Rate 16 18 Blood Pressure 141/48 H 119/65 Pulse Oximetry 98 100 Oxygen Delivery Room Air Room Air Simple Face Mask Oxygen Flow Rate 6 02/22/22 15:30 02/22/22 15:45 02/22/22 16:00 Temperature Pulse Rate 80 72 62 Respiratory Rate 18 18 17 Blood Pressure 105/70 120/47 L 129/52 L Pulse Oximetry 96 93 97 Oxygen Delivery Room Air Room Air Room Air Oxygen Flow Rate 02/22/22 16:35 02/22/22 16:50 02/22/22 17:20 Temperature 37.1 C 36.6 C 36.6 C Pulse Rate 60 70 68 Respiratory Rate 20 20 20 Blood Pressure 115/46 L 118/53 L 135/70 Pulse Oximetry 95 94 97 Oxygen Delivery Oxygen Flow Rate 02/22/22 18:45 02/22/22 20:08 02/22/22 20:00 Temperature 36.6 C Pulse Rate 77 78 78 Respiratory Rate 20 20 Blood Pressure 118/51 L Pulse Oximetry 94 95 95 Oxygen Delivery Room Air Room Air Oxygen Flow Rate 02/22/22 21:57 02/23/22 01:49 02/23/22 06:00 Temperature 36.8 C 36.5 C 36.6 C Pulse Rate 81 77 77 Respiratory Rate 18 16 20 Blood Pressure 122/49 L 144/72 H 111/50 L Pulse Oximetry 98 95 96 Oxygen Delivery Oxygen Flow Rate Intake/Output Intake/Output: Intake & Output 02/20/22 02/21/22 02/22/22 02/23/22 23:59 23:59 23:59 23:59 Intake Total 560 2382 2940 150 Output Total 1000 400 Balance 560 2382 1940 -250 Meds/Results Medications: Active Medications Generic Name Dose Route Start Last Admin Trade Name Freq PRN Reason Stop Dose Admin Acetaminophen 650 mg 02/22/22 18:00 02/23/22 06:29 Acetaminophen 325 Mg Tablet PO 650 mg Q6H MARIJA Administration Al Hydrox/Mg Hydrox/Simethicone 30 ml 02/22/22 16:23 Mag Hydrox/Al Hydrox/Simeth 30 Ml Udc PO Q6H PRN Indigestion Apixaban 2.5 mg 02/23/22 09:00 Apixaban 2.5 Mg Tablet PO 03/29/22 21:01 Q12HR [facility] Calcium Citrate 1 tablet 02/21/22 17:00 02/22/22 16:59 Calcium Citrate 315 Mg/Vitamin D 250 Units Tab PO 1 tablet BID MARIJA Administration Ergocalciferol 50,000 unit 02/21/22 12:00 02/21/22 12:23 Ergocalciferol 50,000 Unit Capsule PO 50,000 unit Foster@0900 [facility] Administration Famotidine 20 mg 02/22/22 21:00 02/22/22 20:23 Famotidine 20 Mg Tablet PO 20 mg Q12HR [facility] Administration Folic Acid 1 mg 02/21/22 09:00 02/22/22 08:16 Folic Acid 1 Mg Tablet PO 1 mg QAM [facility] Administration Gabapentin 600 mg 02/22/22 13:00 02/22/22 18:07 Gabapentin 300 Mg Capsule PO Not Given TID [facility] Cefazolin Sodium 1 gm in 50 mls @ 100 mls/hr 02/22/22 22:00 02/23/22 06:29 Ancef 1 Gm/D5w 50 Ml Pm IVPB 02/23/22 14:29 100 mls/hr Q8H [facility] Administration Lisinopril 20 mg 02/21/22 09:00 02/22/22 08:17 Lisinopril 20 Mg Tablet PO 20 mg DAILY [facility] Administration Morphine Sulfate 2 mg 02/22/22 16:23 Morphine Sulfate (*Crx) 2 Mg/Ml Inj IV PUSH Q3H PRN Pain Rated 7-10 Naloxone HCl 0.1 mg 02/22/22 16:23 Naloxone Hcl 0.4 Mg/Ml Vial IV PUSH Q2M PRN Opiate Reversal Ondansetron HCl 4 mg 02/22/22 16:23 Ondansetron Inj 4 Mg/2 Ml Vial IV PUSH Q4H PRN Nausea And Vomiting Oxycodone HCl 2.5 mg 02/22/22 16:23 02/23/22 02:38 Oxycodone Hcl (*Crx) 2.5 Mg Tab Ir PO 2.5 mg Q4H PRN Administration Pain Rated 4-6 Oxycodone HCl 2.5 mg 02/22/22 17:00 02/23/22 06:28 Oxycodone Hcl (*Crx) 2.5 Mg Tab Ir PO 2.5 mg Q4HR MARIJA Administration Polyethylene Glycol 17 gm 02/23/22 09:00 Polyethylene Glycol 3350 17 Gm Powd.Pack PO QAM MARIJA Saccharomyces Boulardii 250 mg 02/21/22 09:00 02/22/22 16:59 Saccharomyces Boulardii 250 Mg Capsule PO 250 mg BID MARIJA Administration
[2022-02-23 07:09] LABS: Alanine Aminotransferase 17 U/L (6-35); Albumin Level 3.2 g/dL (3.5-5.1); Alkaline Phosphatase 55 U/L (38-126); Anion Gap 5 mmol/L (8-16); Aspartate Amino Transferase 25 U/L (14-36); Bilirubin,Total 0.3 mg/dL (0.2-1.3); Blood Urea Nitrogen 11 mg/dL (7-17); Calcium 8.4 mg/dL (8.4-10.2); Carbon Dioxide 24 mmol/L (22-30); Chloride 108 mmol/L (98-107); Estimated CRCL calculation 92 ml/min; Estimated Glomerular Filt Rate > 60; Glucose 156 mg/dL (65-110); Potassium 4.5 mmol/L (3.4-5.0); Sodium 137 mmol/L (137-145)
[2022-02-23] MEDS: polyethylene glycoL 3350 17 GM POWD.PACK PO (08:56)
[2022-02-23] MEDS: GABAPENTIN 300 MG CAPSULE 600 MG PO ×3 (08:58→18:19)
[2022-02-23] MEDS: FOLIC ACID 1 MG TABLET PO (08:58)
[2022-02-23] MEDS: SENNA/DOCUSATE SODIUM TABLET 2 TAB PO ×2 (08:59→18:20)
[2022-02-23] MEDS: FAMOTIDINE 20 MG TABLET PO ×2 (08:59→20:40)
[2022-02-23] MEDS: lisinopriL 20 MG TABLET PO (08:59)
[2022-02-23] MEDS: APIXABAN 2.5 MG TABLET PO ×2 (08:59→20:40)
[2022-02-23] MEDS: SACCHAROMYCES BOULARDII 250 MG CAPSULE PO ×2 (08:59→18:20)
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
[2022-02-23 14:00] VITALS: BP 107/62; PULSE 70; RESP 18; TEMP 36.5; O2SAT 98
[2022-02-23 20:00] VITALS: PULSE 88; RESP 20; O2SAT 98
[2022-02-23 22:00] VITALS: BP 102/41; PULSE 88; RESP 20; TEMP 36.2; O2SAT 98
[2022-02-24] MEDS: oxyCODONE HCL (*CRX) 2.5 MG TAB IR PO ×7 (00:01→16:35)
[2022-02-24] MEDS: ACETAMINOPHEN 325 MG TABLET 650 MG PO ×4 (05:50→16:35)
[2022-02-24 05:56] VITALS: BP 126/54; PULSE 75; RESP 18; TEMP 36.5; O2SAT 96
[2022-02-24 06:00] VITALS: BP 126/54; PULSE 75; RESP 18; TEMP 36.5; O2SAT 96
[2022-02-24 06:20] LABS: Basophils Absolute Auto 0.1 K/mm3 (0.0-0.1); Basophils Percent Auto 0.5 % (0.2-1.2); Eosinophils Absolute Auto 1.5 K/mm3 (0-0.3); Hemoglobin 10.5 g/dL (12.0-15.0); Immature Granulocyte Absolute 0.16 K/mm3 (0.00-0.031); Immature Granulocyte Percent A 1.2 % (0-0.5); Lymphocytes Absolute Auto 2.67 K/mm3 (0.9-3.2); Lymphocytes Percent Auto 19.9 % (18.3-44.2); Mean Corpuscular HGB Conc 30.9 g/dl (32-36); Mean Corpuscular Hemoglobin 29.1 pg (26-34); Mean Corpuscular Volume 94.2 fl (80-100); Mean Platelet Volume 9.8 fl (7.4-10.4); Monocytes Absolute Auto 1.3 K/mm3 (0.1-0.6); Monocytes Percent Auto 9.9 % (2.6-8.5); Neutrophils Absolute Auto 7.7 K/mm3 (1.3-6.7); Neutrophils Percent Auto 57.5 % (45.5-73.1); Platelet Count Result 428 k/mm3 (150-375); Red Blood Count 3.61 M/mm3 (4.2-5.4); Red Cell Distribution Width 15.4 % (11.5-14.5); White Blood Count 13.4 K/mm3 (4.5-10.0)
[2022-02-24 06:27] LABS: Alanine Aminotransferase 18 U/L (6-35); Albumin Level 3.2 g/dL (3.5-5.1); Alkaline Phosphatase 63 U/L (38-126); Anion Gap 9 mmol/L (8-16); Aspartate Amino Transferase 19 U/L (14-36); Bilirubin,Total 0.4 mg/dL (0.2-1.3); Blood Urea Nitrogen 12 mg/dL (7-17); Calcium 8.6 mg/dL (8.4-10.2); Carbon Dioxide 22 mmol/L (22-30); Chloride 108 mmol/L (98-107); Estimated CRCL calculation 92 ml/min; Estimated Glomerular Filt Rate > 60; Glucose 134 mg/dL (65-110); Potassium 3.7 mmol/L (3.4-5.0); Sodium 139 mmol/L (137-145)
[2022-02-24 08:00] VITALS: PULSE 75; RESP 18; O2SAT 96
[2022-02-24] MEDS: polyethylene glycoL 3350 17 GM POWD.PACK PO (08:26)
[2022-02-24] MEDS: SENNA/DOCUSATE SODIUM TABLET 2 TAB PO (08:26)
[2022-02-24] MEDS: FOLIC ACID 1 MG TABLET PO (08:26)
[2022-02-24] MEDS: lisinopriL 20 MG TABLET PO (08:26)
[2022-02-24] MEDS: SACCHAROMYCES BOULARDII 250 MG CAPSULE PO ×2 (08:26→16:35)
[2022-02-24] MEDS: APIXABAN 2.5 MG TABLET PO (08:26)
[2022-02-24] MEDS: FAMOTIDINE 20 MG TABLET PO (08:27)
[2022-02-24] MEDS: GABAPENTIN 300 MG CAPSULE 600 MG PO ×3 (08:27→16:35)
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
--- NOTE | 2022-02-24 13:58 | PC.NURSE ---
call placed for healthcare account manager, pt stating can't go to rehab, can't pay for it, and wants to stay another night at hospital. Called provider Angélica and informed her as well.
[2022-02-24 14:00] VITALS: BP 112/48; PULSE 81; RESP 18; TEMP 36.3; O2SAT 100
--- NOTE | 2022-02-24 14:00 | PC.NURSE ---
covid swab sent to lab for analysis.
[2022-02-24 14:15] LABS: EDCOVIDSCREEN Negative (Negative)
--- NOTE | 2022-02-24 14:53 | PC.NURSE ---
x1 attempt to call report to [facility], unable to reach nurse for report.
--- NOTE | 2022-02-24 15:44 | PC.NURSE ---
Report given to nurse at [facility], awaiting ambulance for transport to facility.
--- NOTE | 2022-02-24 18:24 | PC.NURSE ---
[facility]'s here to transport pt to [facility].
== END 2022-02-24 18:27 | DRG 320 ==
LOC: ANHED 13:29 → ANH2MED 13:38
PROVIDERS: Nurse Practitioner Family; Orthopaedic Surgery; Physician Assistant; Admitting Provider Internal Medicine; Emergency Provider Emergency Medicine; PCP Family Medicine; Visit Provider Physician Assistant
PROC: 0QSF04Z Reposition Left Patella with Internal Fixation Device, Open Approach (ICD-10-PCS; CPT 27524; principal; 2022-02-22 13:00)
DX: S82.042A Displaced comminuted fracture of left patella, initial encounter for closed fracture (principal); Z20.822 Contact with and (suspected) exposure to COVID-19; I10 Essential (primary) hypertension; L30.9 Dermatitis, unspecified; D47.3 Essential (hemorrhagic) thrombocythemia; F41.8 Other specified anxiety disorders; E78.5 Hyperlipidemia, unspecified; W01.0XXA Fall on same level from slipping, tripping and stumbling without subsequent striking against object, initial encounter; D72.829 Elevated white blood cell count, unspecified; E66.01 Morbid (severe) obesity due to excess calories; Z68.41 Body mass index [BMI] 40.0-44.9, adult
CPT/HCPCS: 36415; 71045; 73562; 73700; 80048; 80053; 82306; 83735; 85025; 85027; 87426; 93005; 96372; 97110; 97116; 97161; 97165; 97530; 97535; 99285; A9270; C1769; C9803; G0378; G0379; J0330; J0690; J1100; J1650; J2250; J2370; J2405; J2704; J2710; J3010; J3370; J7030; J7120; L1830; U0003; U0005

== ENCOUNTER 2022-10-21 10:08 | Emergency (ER) | payer MEDICARE, SELFPAY ==
--- NOTE | ~2022-10-21 | CT_ITS ---
CT Abdomen and Pelvis with contrast. History: Abdominal pain, weight loss. Spiral CT of the abdomen and pelvis was performed after the administration of intravenous contrast. 1 00 cc of Omnipaque 350 was administered intravenously without complication. Dose reduction technique was used on this scan by utilizing automated exposure control and iterative reconstruction technique. The dose-length product (DLP) was 579.48 mGy-cm. Findings: Scans through the lung bases demonstrate moderate bilateral pleural effusions, right greate r than left, with mild bibasilar atelectasis. Small gallstone noted. There is a probable small hepatic hemangioma measuring 1.5 cm in diameter (axi al image 43). Low-density lesion noted adjacent to the falciform ligament region (axial image 43). Th e spleen, pancreas, adrenals and kidneys are within normal limits. No evidence of aortic aneurysm. No lymphadenopathy is seen. There is no evidence of bowel obstruction. There is no evidence to suggest acute appendicitis or dive rticulitis. Images through the pelvis were performed. Urinary bladder unremarkable. No pelvic mass identified. No ascites. No ascites is seen. Impression: 2.2 x 1.1 cm indeterminate hypodense mass in the liver near the falciform ligament region, as detaile d above. Follow-up pre and postcontrast MR recommended to better assess this lesion. Moderate bilateral pleural effusions, right greater than left. Additional probable small hepatic hemangioma, as detailed above. Cholelithiasis. Reviewed, dictated and finalized at [facility]. [employer] Impression: 2.2 x 1.1 cm indeterminate hypodense mass in the liver near the falciform ligam ent region, as detailed above. Follow-up pre and postcontrast MR recommended to better assess this lesion. Moderate bilateral pleural effusions, right greater than left. Additional probable small hepatic hemangioma, as detailed above. Cholelithiasis.
[2022-10-21 10:17] VITALS: BP 123/66; PULSE 99; RESP 14; TEMP 36.6; O2SAT 97
[2022-10-21 10:24] VITALS: BP 154/71; PULSE 105; RESP 20; O2SAT 97
[2022-10-21] MEDS: LACTATED RINGERS 1,000 ML 999 ML IV CONT (10:47)
[2022-10-21 10:48] LABS: Basophils Absolute Auto 0.1 K/mm3 (0.0-0.1); Basophils Percent Auto 1.1 % (0.2-1.2); Eosinophils Absolute Auto 1.6 K/mm3 (0-0.3); Eosinophils Percent Auto 15.9 % (0-4.4); Hematocrit 42.6 % (37.0-47.0); Hemoglobin 13.5 g/dL (12.0-15.0); Immature Granulocyte Absolute 0.03 K/mm3 (0.00-0.031); Immature Granulocyte Percent A 0.3 % (0-0.5); Lymphocytes Absolute Auto 1.78 K/mm3 (0.9-3.2); Lymphocytes Percent Auto 18.1 % (18.3-44.2); Mean Corpuscular HGB Conc 31.7 g/dl (32-36); Mean Corpuscular Hemoglobin 27.6 pg (26-34); Mean Corpuscular Volume 87.1 fl (80-100); Mean Platelet Volume 9.1 fl (7.4-10.4); Monocytes Percent Auto 10.6 % (2.6-8.5); Neutrophils Absolute Auto 5.3 K/mm3 (1.3-6.7); Platelet Count Result 778 k/mm3 (150-375); Red Blood Count 4.89 M/mm3 (4.2-5.4); Red Cell Distribution Width 13.2 % (11.5-14.5); White Blood Count 9.9 K/mm3 (4.5-10.0)
[2022-10-21 11:15] LABS: Alanine Aminotransferase 16 U/L (6-35); Albumin Level 3.6 g/dL (3.5-5.1); Alkaline Phosphatase 108 U/L (38-126); Anion Gap 8 mmol/L (8-16); Aspartate Amino Transferase 25 U/L (14-36); Bilirubin,Total 0.4 mg/dL (0.2-1.3); Blood Urea Nitrogen 15 mg/dL (7-17); Calcium 10.4 mg/dL (8.4-10.2); Carbon Dioxide 27 mmol/L (22-30); Chloride 104 mmol/L (98-107); Estimated Glomerular Filt Rate 41; Glucose 105 mg/dL (65-110); Lipase 284 U/L (23-300); Potassium 3.8 mmol/L (3.4-5.0); Sodium 139 mmol/L (137-145)
[2022-10-21 11:45] VITALS: BP 144/57; PULSE 81; RESP 18; O2SAT 99
--- NOTE | 2022-10-21 17:32 | ED.ABDPAIN ---
HPI - Abdominal Pain General Chief Complaint: Abdominal Pain Stated Complaint: abd pain Time Seen by Provider: 10/21/22 10:24 History of Present Illness HPI narrative: Patient states that over the course of many months, she has had a lot of weight loss that was unintentional, and over the last few weeks, has been having some vague nausea, early satiety, and abdominal cramps. They seem to travel from her lower abdomen up to her upper abdomen. No fevers or chills, no diarrhea, she was seen by her doctor yesterday who ordered basic labs and noted that her creatinine was elevated so sent her to the emergency room today. Related Data Home Medications Medication Instructions Recorded Confirmed Saccharomyces boulardii 250 mg 250 mg PO BID 06/19/21 10/20/22 capsule (Florastor) pimecrolimus 1 % topical cream 1 applic topical BID 10/20/22 10/20/22 Allergies Allergy/AdvReac Type Severity Reaction Status Date / Time tetracycline AdvReac Mild yeast Verified 10/21/22 10:23 infection Review of Systems Review of Systems: CONST: No fever. HEENT: No sore throat C/V: No chest pain RESP: No cough GI: Reports abdominal pain, nausea : No dysuria. M/S: No joint pain. SKIN: No rash. NEURO: [No headache or focal numbness or weakness] PSYCH: [No depression] [facility] Past Medical History Medical History (Updated 10/21/22 @ 13:23 by Dona Miranda MD) Depression with anxiety Eczema Followed by dermatology at [facility]. Hyperlipidemia Hypertension Positive antinuclear antibody Renal cyst Thrombocytosis Surgical History Surgical History History of arthroscopy of left shoulder (~2019) History of carpal tunnel surgery (~2019) Family History Family History Mother Diabetes mellitus Hypertension Father Heart attack Social History Social History Social History: Surrogate decision-maker: Zohra Bucio, sister. CODE STATUS: Full code. Smoking status: Never smoker Second hand tobacco smoke exposure: No Alcohol intake: never Substance use: never Additional living arrangements comments: Recently . No children. Spiritual care concerns: No Course Vital Signs Vital signs: Vital Signs Temperature 97.8 F 10/21/22 10:17 Pulse Rate 99 10/21/22 10:17 Respiratory Rate 14 10/21/22 10:17 Blood Pressure 123/66 10/21/22 10:17 Pulse Oximetry 97 10/21/22 10:17 Oxygen Delivery Room Air 10/21/22 10:17 Temperature 97.8 F 10/21/22 10:17 Pulse Rate 81 10/21/22 11:45 Respiratory Rate 18 10/21/22 11:45 Blood Pressure 144/57 H 10/21/22 11:45 Pulse Oximetry 99 10/21/22 11:45 Oxygen Delivery Room Air 10/21/22 10:24 MDM - Abdominal Pain MDM Narrative Medical decision making narrative: 67-year-old female presenting for abdominal discomfort, unintentional weight loss, and creatinine that is elevated, vital signs are stable here, she is well-appearing with soft abdomen that is nontender, given her chronic weight loss I am concerned for possible malignancy versus other abdominal etiology, labs are obtained and show an improvement creatinine of 1.3 from 1.6 yesterday, abdomen CT shows a liver mass. I am concerned that this may be malignancy causing her symptoms, I did discuss this with the patient as well as the need for her to follow-up as an outpatient for MRI and further imaging and possible biopsy, also discussed this with her primary care doctor Dr. Moran who states that she will arrange for this follow-up. Patient stable for discharge at this time with strict return precautions Lab Data 10/21/22 10:33 10/21/22 10:33 Labs: Lab Results 10/21/22 10/21/22 Range/Units 10:33 10:33 WBC 9.9 (4.5-10.0) K/mm3 RBC 4.89 (4.2-5.4) M/mm3 Hgb 13.5 D (12.0-15.0) g/dL H
== END 2022-10-21 14:14 | disposition home or self-care (01) ==
PROVIDERS: Emergency Provider Emergency Medicine; PCP Family Medicine
DX: R16.0 Hepatomegaly, not elsewhere classified (principal); L29.9 Pruritus, unspecified; E78.5 Hyperlipidemia, unspecified; I10 Essential (primary) hypertension; J90 Pleural effusion, not elsewhere classified; K80.20 Calculus of gallbladder without cholecystitis without obstruction
CPT/HCPCS: 36415; 74177; 80053; 83690; 85025; 96360; 99284; J7120; Q9967

== ENCOUNTER → 2022-10-26 09:00 | Outpatient (CLI) | payer MEDICARE, SELFPAY ==
--- NOTE | ~2022-10-26 | MR_ITS ---
EXAMINATION: MR abdomen wo/w con DATE: 10/26/2022 10:14 INDICATION: Liver mass TECHNIQUE: Magnetic resonance imaging (MRI) of the abdomen was performed without and with 15 mL Multi esthela intravenous contrast. Sequences included coronal T2-weighted SS-FSE, coronal and axial FS 2D-F IESTA, axial STIR FSE, axial T2-weighted SS-FSE, axial T2-weighted FS SS-FSE, axial diffusion-weighte d SE, axial dual-echo T1-weighted FSPGR, and axial and coronal T1-weighted LAVA. Postcontrast axial T 1-weighted LAVA images were obtained in a time course. Postcontrast coronal T1-weighted LAVA images w ere obtained. COMPARISON: None. FINDINGS: Moderate to large right and small left posteriorly layering pleural effusions with dependent compress abhijit atelectasis in the bilateral lower lobes. Heart size is normal. No pericardial effusion. 12 mm T2 hyperintense nonenhancing cyst in segment 2 of the liver. There are additional tiny T2 hyperintense cysts which are too small to be seen on the postcontrast imaging. 1.4 cm slightly less T2 hyperintens e lesion in segment V of the liver which demonstrates relatively rapid enhancement beginning peripher ally and on the subsequent image involving the entire lesion which remains avidly enhancing, isointen se to the level of the aorta through 10 minutes of imaging with no evident washout. Appearance would be most consistent with a flash filling hemangioma. Finally the more irregular shaped hypodense regio n in the liver situated at the confluence of the falciform ligament and the left and right heidi hepa tis demonstrates decreased signal on the fat-saturated T1-weighted images and signal dropout on oppos ed phase imaging consistent with focal fat. No other hepatic lesions identified. Spleen, pancreas, bi lateral adrenal glands and kidneys are normal. There are several tiny low signal intensity gallstones in the dependent aspect of the normal appearing gallbladder. No evident choledocholithiasis or intra or extra hepatic biliary ductal dilation. Visualized portions of the bowels are unremarkable. No pat hologically enlarged abdominal lymphadenopathy. Mild thoracic spondylosis. IMPRESSION: 1. Hepatic lesion of concern on prior CT with MRI signal changes on saturation the post phase imaging most consistent with focal hepatic steatosis. Additional 1.4 cm flash filling hemangioma and a few s maller hepatic cysts. 2. Cholelithiasis. 3. Moderate to large right and small left pleural effusions. Reviewed, dictated and finalized at [facility] IMPRESSION: 1. Hepatic lesion of concern on prior CT with MRI signal changes on saturation the post phase imaging most consistent with focal hepatic steatosis. Additional 1.4 cm flash filling hemangioma and a few smaller hepatic cysts. 2. Cholelithiasis. 3. Moderate to large right and small left pleural effusions.
== END ==
PROVIDERS: PCP Family Medicine; Visit Provider Family Medicine
DX: R16.0 Hepatomegaly, not elsewhere classified (principal); K76.89 Other specified diseases of liver; K80.20 Calculus of gallbladder without cholecystitis without obstruction; J90 Pleural effusion, not elsewhere classified
CPT/HCPCS: 74183; A9577

== ENCOUNTER 2022-11-08 13:37 | Outpatient (CLI) | payer MEDICARE, SELFPAY ==
[2022-11-08 15:25] LABS: Basophils Absolute Auto 0.1 K/mm3 (0.0-0.1); Basophils Percent Auto 0.9 % (0.2-1.2); Eosinophils Absolute Auto 0.4 K/mm3 (0-0.3); Eosinophils Percent Auto 3.6 % (0-4.4); Hematocrit 42.4 % (37.0-47.0); Hemoglobin 13.5 g/dL (12.0-15.0); Immature Granulocyte Percent A 0.9 % (0-0.5); Lymphocytes Absolute Auto 1.33 K/mm3 (0.9-3.2); Mean Corpuscular HGB Conc 31.8 g/dl (32-36); Mean Corpuscular Hemoglobin 27.4 pg (26-34); Mean Corpuscular Volume 86.2 fl (80-100); Mean Platelet Volume 9.3 fl (7.4-10.4); Monocytes Absolute Auto 0.9 K/mm3 (0.1-0.6); Monocytes Percent Auto 7.8 % (2.6-8.5); Neutrophils Absolute Auto 8.3 K/mm3 (1.3-6.7); Neutrophils Percent Auto 74.8 % (45.5-73.1); Platelet Count Result 826 k/mm3 (150-375); Red Blood Count 4.92 M/mm3 (4.2-5.4); Red Cell Distribution Width 13.3 % (11.5-14.5)
[2022-11-08 15:42] LABS: Alanine Aminotransferase 16 U/L (6-35); Albumin Level 3.3 g/dL (3.5-5.1); Alkaline Phosphatase 137 U/L (38-126); Anion Gap 7 mmol/L (8-16); Aspartate Amino Transferase 24 U/L (14-36); Bilirubin,Total 0.4 mg/dL (0.2-1.3); Blood Urea Nitrogen 15 mg/dL (7-17); Calcium 8.8 mg/dL (8.4-10.2); Carbon Dioxide 27 mmol/L (22-30); Chloride 103 mmol/L (98-107); Estimated Glomerular Filt Rate 38; Glucose 118 mg/dL (65-110); Sodium 137 mmol/L (137-145)
[2022-11-08 15:45] LABS: Appearance Urine Slightly Cloudy (Clear); Bilirubin Urine 2+ (Negative); Blood Urine 2+ (Negative); Color Urine Yellow (Yellow); Glucose Urine UA Negative (Negative); Ketones Urine 1+ mg/dL (Negative); Leukocyte Esterase Ur Trace LEU/UL (Negative); Nitrate Urine Negative (Negative); Protein Urine 2+ mg/dL (Negative); Specific Grav Ur >= 1.030 (1.001-1.035); Urobilinogen Urine 0.2 mg/dL (<2.0); pH Urine 5.5 (5.0-9.0)
[2022-11-08 16:03] LABS: Bacteria Urine Trace /hpf; Hyaline Casts Urine 50+ /lpf; Mucus Urine Heavy /lpf; Squamous Epithelial Cell Urine Many /hpf (Few)
[2022-11-08 16:23] LABS: Add Urine Microscopic? YES
[2022-11-08 17:50] LABS: Potassium 3.7 mmol/L (3.4-5.0)
== END 2022-11-08 13:38 | disposition home or self-care (01) ==
PROVIDERS: PCP Family Medicine; Visit Provider Family Medicine
DX: R94.4 Abnormal results of kidney function studies (principal); D75.839 Thrombocytosis, unspecified
CPT/HCPCS: 36415; 80053; 81001; 85025; 87086; 87147; 87181; 87186

== ENCOUNTER 2022-11-23 13:06 | Outpatient (CLI) | payer MEDICARE, SELFPAY ==
[2022-11-23 14:06] LABS: Hematocrit 44.1 % (37.0-47.0); Hemoglobin 13.8 g/dL (12.0-15.0); Mean Corpuscular HGB Conc 31.3 g/dl (32-36); Mean Corpuscular Hemoglobin 26.4 pg (26-34); Mean Corpuscular Volume 84.5 fl (80-100); Mean Platelet Volume 9.4 fl (7.4-10.4); Platelet Count Result 915 k/mm3 (150-375); Red Blood Count 5.22 M/mm3 (4.2-5.4); Red Cell Distribution Width 13.4 % (11.5-14.5)
[2022-11-23 14:08] LABS: Appearance Urine Slightly Cloudy (Clear); Bilirubin Urine 2+ (Negative); Blood Urine 2+ (Negative); Glucose Urine UA Negative (Negative); Ketones Urine 2+ mg/dL (Negative); Leukocyte Esterase Ur 1+ LEU/UL (Negative); Nitrate Urine Negative (Negative); Protein Urine 2+ mg/dL (Negative); Urobilinogen Urine 0.2 mg/dL (<2.0)
[2022-11-23 14:14] LABS: Mucus Urine Heavy /lpf; Squamous Epithelial Cell Urine Few /hpf (Few); WBC Urine 31-50 /hpf
[2022-11-23 14:15] LABS: Add Urine Microscopic? YES; Color Urine Dark Yellow (Yellow)
[2022-11-23 14:21] LABS: Anion Gap 10 mmol/L (8-16); Blood Urea Nitrogen 13 mg/dL (7-17); Calcium 9.2 mg/dL (8.4-10.2); Carbon Dioxide 26 mmol/L (22-30); Chloride 96 mmol/L (98-107); Estimated Glomerular Filt Rate 41; Glucose 116 mg/dL (65-110); Potassium 4.6 mmol/L (3.4-5.0); Sodium 132 mmol/L (137-145)
[2022-11-23 14:42] LABS: INR 1.1; Prothrombin Time 14.2 Seconds (11.1-14.7)
[2022-11-23 14:43] LABS: Partial Thromboplastin Time 28.7 SECONDS (22.3-36.8)
[2022-11-23 14:48] LABS: D Dimer 2.14 ug/mL (<0.48)
[2022-11-24 12:15] LABS: Basophils Absolute Auto 0.1 K/mm3 (0.0-0.1); Basophils Percent Auto 1.1 % (0.2-1.2); Eosinophils Absolute Auto 0.9 K/mm3 (0-0.3); Immature Granulocyte Absolute 0.08 K/mm3 (0.00-0.031); Immature Granulocyte Percent A 0.8 % (0-0.5); Lymphocytes Percent Auto 14.1 % (18.3-44.2); Monocytes Percent Auto 9.4 % (2.6-8.5); Neutrophils Absolute Auto 7.1 K/mm3 (1.3-6.7); Neutrophils Percent Auto 66.6 % (45.5-73.1)
[2022-11-24 12:21] LABS: Platelet Estimate Increased (Adequate); Schistocytes None Seen (NORMAL)
[2022-11-25 13:21] LABS: RNP Antibodies <1.0
[2022-11-30 18:20] LABS: Creatinine, Random Urine 270 mg/dL (20-275); Total Protein/Creatinine Ratio 204 mg/g creat (24-184)
== END 2022-11-23 13:07 | disposition home or self-care (01) ==
PROVIDERS: PCP Family Medicine; Visit Provider Physician Assistant
DX: N28.9 Disorder of kidney and ureter, unspecified (principal); R80.9 Proteinuria, unspecified; L30.9 Dermatitis, unspecified; R79.89 Other specified abnormal findings of blood chemistry; R06.02 Shortness of breath
CPT/HCPCS: 36415; 80048; 81001; 82570; 84156; 84166; 85025; 85027; 85380; 85610; 85730; 86038; 86225; 86235; 87086

== ENCOUNTER 2022-12-15 11:18 | Inpatient (IN) | payer MEDICARE, MEDICAID, SELFPAY ==
[2022-12-15] VITALS (11 sets, daily range): BP systolic 102–137; BP diastolic 50–76; PULSE 94–121; RESP 16–22; TEMP 36.3–37.1; O2SAT 97–100
--- NOTE | ~2022-12-15 | XR_ITS ---
EXAMINATION: XR chest 2V DATE: 12/15/2022 13:05 INDICATION: Shortness of breath TECHNIQUE: frontal and lateral views of the chest were obtained. COMPARISON: Chest radiograph dated 02/20/2022 FINDINGS: Small left and moderate-sized right posterior layering pleural effusions with associated basilar atel ectasis. Superimposed pneumonia not excluded although there are no evident concerning opacities in th e residual aerated portion of the lungs to elevate suspicion. No pulmonary edema or pneumothorax. Hea rt size is normal. There are bridging osteophytes at multiple levels in the spine, consistent with di ffuse idiopathic skeletal hyperostosis (DISH). IMPRESSION: 1. Small left and moderate right pleural effusions with associated atelectasis versus less likely pne umonia. Reviewed, dictated and finalized at location B. IMPRESSION: 1. Small left and moderate right pleural effusions with associated atelectasis versus less likely pneumonia.
--- NOTE | ~2022-12-15 | US_ITS ---
EXAMINATION: US thoracentesis DATE: 12/15/2022 17:32 INDICATION: pleural effusion TECHNIQUE: The procedure and its risks, benefits, and alternatives were discussed with the patient. P otential risks discussed included bleeding, infection, and pneumothorax. The patient understood the r isks and agreed to proceed. The skin was prepped and draped in sterile fashion. 1% lidocaine was used for local anesthesia. Under ultrasound guidance, a 5 Fr catheter with trochar was advanced into the right pleural effusion. Fluid was aspirated. The catheter was removed, and a dressing was applied. Th ere were no immediate complications. FINDINGS: Ultrasound images demonstrate a right pleural effusion and the catheter within the fluid. There are n umerous loculations in the effusion. IMPRESSION: 1. Successful ultrasound-guided thoracentesis yielding 100 mL of clear, yellow fluid. Reviewed, dictated and finalized at location A.
--- NOTE | ~2022-12-15 | XR_ITS ---
EXAMINATION: [id number] DATE: 12/15/2022 17:37 INDICATION: Right pleural effusion status post thoracentesis. TECHNIQUE: Frontal and lateral views of the chest were obtained on 3 radiographs. COMPARISON: Chest 2 views 12/15/2022 at 1255, CT abdomen and pelvis 10/21/22 FINDINGS: There is a moderate-sized loculated right pleural effusion. There is a small left pleural e ffusion. There are airspace opacities in right mid and lower lung zones, likely atelectasis. There is mild atelectasis at left lung base. No pneumothorax or the heart size is normal. IMPRESSION: 1. Stable moderate-sized loculated right pleural effusion. Small left pleural effusion. 2. Mild atelectasis bilaterally. Reviewed, dictated and finalized at location A. IMPRESSION: 1. Stable moderate-sized loculated right pleural effusion. Small left pleural e ffusion. 2. Mild atelectasis bilaterally.
--- NOTE | 2022-12-15 12:46 | PC.NURSE ---
States she has a bed sore on her butt and is uncomfortable. Pt has redness around her coccyx but the wound is closed. Pt is repositioned on her left side.
[2022-12-15 12:47] LABS: Basophils Absolute Auto 0.1 K/mm3 (0.0-0.1); Basophils Percent Auto 0.9 % (0.2-1.2); Eosinophils Absolute Auto 0.4 K/mm3 (0-0.3); Eosinophils Percent Auto 3.8 % (0-4.4); Hematocrit 35.7 % (37.0-47.0); Hemoglobin 11.5 g/dL (12.0-15.0); Immature Granulocyte Absolute 0.15 K/mm3 (0.00-0.031); Immature Granulocyte Percent A 1.4 % (0-0.5); Lymphocytes Absolute Auto 1.01 K/mm3 (0.9-3.2); Lymphocytes Percent Auto 9.3 % (18.3-44.2); Mean Corpuscular HGB Conc 32.2 g/dl (32-36); Mean Corpuscular Hemoglobin 26.6 pg (26-34); Mean Corpuscular Volume 82.6 fl (80-100); Mean Platelet Volume 9.4 fl (7.4-10.4); Monocytes Absolute Auto 1.3 K/mm3 (0.1-0.6); Monocytes Percent Auto 11.7 % (2.6-8.5); Neutrophils Percent Auto 72.9 % (45.5-73.1); Platelet Count Result 835 k/mm3 (150-375); Red Blood Count 4.32 M/mm3 (4.2-5.4); Red Cell Distribution Width 14.6 % (11.5-14.5); White Blood Count 10.9 K/mm3 (4.5-10.0)
[2022-12-15] MEDS: ONDANSETRON INJ 4 MG/2 ML VIAL IV PUSH ×2 (12:52→15:55)
[2022-12-15 13:00] LABS: INR 1.3; Prothrombin Time 16.1 Seconds (11.1-14.7)
[2022-12-15 13:01] LABS: Partial Thromboplastin Time 34.1 SECONDS (22.3-36.8)
--- NOTE | 2022-12-15 13:49 | ED.GENADULT ---
HPI - General Adult General Chief complaint: Recheck/Abnormal Lab/Rx Stated complaint: Sent by PCP to be admitted fluid in lungs Time Seen by Provider: 12/15/22 11:52 History of Present Illness HPI narrative: Patient is a 67-year-old female who presents ER for shortness of breath. Patient has a known pleural effusion. She has had weight loss of 100 pounds over the last 7 months. Outpatient work-up has not shown any obvious cause of the weight loss. There is concern for some malignancy as patient has had significant thrombocytosis. She has been unable to see hematology. Patient denies any new fevers or chills or sweats. She has exertional dyspnea. No cough. She was told that she would require a thoracentesis and admission. Related Data Home Medications Medication Instructions Recorded Confirmed Saccharomyces boulardii 250 mg 250 mg PO BID 06/19/21 12/13/22 capsule (Florastor) pimecrolimus 1 % topical cream 1 applic topical BID 10/20/22 12/13/22 Allergies Allergy/AdvReac Type Severity Reaction Status Date / Time naproxen [From Aleve] Allergy Abdominal Verified 12/15/22 12:01 Pain tetracycline AdvReac Mild yeast Verified 12/15/22 12:01 infection Review of Systems Review of Systems: All systems reviewed & are unremarkable except as noted in HPI and below Constitutional: Constitutional: Denies chills, Reports fatigue and Denies fever(s) Comments: Positive unintended weight loss. ENT: Denies nasal congestion and Denies sore throat Cardiovascular: Cardiovascular: Denies chest pain, Denies rapid heart rate and Denies radiating jaw, neck or arm pain Respiratory: Respiratory: Denies cough, Reports dyspnea and Denies wheezing Gastrointestinal: Gastrointestinal: Denies abdominal pain, Denies nausea and Denies vomiting [facility] Past Medical History Medical History Depression with anxiety Eczema Followed by dermatology at [facility]. Hyperlipidemia Hypertension Positive antinuclear antibody Renal cyst Thrombocytosis Surgical History Surgical History History of arthroscopy of left shoulder (~2019) History of carpal tunnel surgery (~2019) Family History Family History Mother Diabetes mellitus Hypertension Father Heart attack Social History Social History (Updated 12/13/22 @ 11:33 by Emma Chiang [facility]) Social History: Surrogate decision-maker: Zohra Bucio, sister. CODE STATUS: Full code. Smoking status: Never smoker Second hand tobacco smoke exposure: No Alcohol intake: never Substance use: never Substance use type: does not use Lack of Transportation: No Lack of Food: Never True Current Housing: I Have Housing Concerned About Future Housing: No Difficulty Paying Gas/Electric Bills: No Difficulty Paying for Meds: No Currently Unemployed: No Education: High School Diploma/GED Difficulty w/ Childcare or Family Care: No Living arrangements: alone Additional living arrangements comments: Recently . No children. Occupation/Education: retired Gender identity (if verbalized by the patient): Female Sexual Orientation (if Verbalized by the Patient): Straight or Heterosexual Spiritual care concerns: No Agree to blood products: Yes Exam Narrative: GENERAL: Well-appearing, well-nourished, and in no acute distress. HEAD: Normocephalic, atraumatic. ENT: Mucous membranes moist. NECK: Supple. CHEST: Clear to auscultation but significantly diminished on the right. Increased respiratory rate without distress. HEART: Regular rate and rhythm. Normal peripheral pulses. ABDOMEN: Soft, nontender, nondistended. EXTREMITIES: Normal range of motion. No edema. SKIN: Warm, dry, no rash. NEURO: Alert and oriented x3. PSYCH: Normal mood and affect. Course Course Emergency Course:
[2022-12-15 15:09] LABS: Alanine Aminotransferase 13 U/L (6-35); Albumin Level 3.7 g/dL (3.5-5.1); Alkaline Phosphatase 113 U/L (38-126); Anion Gap 12 mmol/L (8-16); Aspartate Amino Transferase 27 U/L (14-36); Bilirubin,Total 0.7 mg/dL (0.2-1.3); Blood Urea Nitrogen 16 mg/dL (7-17); Calcium 9.8 mg/dL (8.4-10.2); Carbon Dioxide 21 mmol/L (22-30); Chloride 97 mmol/L (98-107); Estimated CRCL calculation 42 ml/min; Estimated Glomerular Filt Rate 56; Glucose 98 mg/dL (65-110); Lipase 187 U/L (23-300); Potassium 4.2 mmol/L (3.4-5.0); Sodium 130 mmol/L (137-145)
--- NOTE | 2022-12-15 15:30 | PC.NURSE ---
dominguez willoughby from wound care at bedside. states redness to coccyx area is actually yeast infection and not beginning of pressure ulcer as we originally thought. suggests treatment with antifungal cream. edp aware and orders changed. pt remains fixated on her buttocks.
--- NOTE | 2022-12-15 15:55 | PC.NURSE ---
Pt states that she is feeling nauseous again and would like more medication. Pt has PRN zofran ordered.
[2022-12-15 18:38] LABS: Appearance Pleural Fluid Hazy (Clear); Color Pleural Fluid Yellow (Colorless); Pleural fluid source Pleural fluid
[2022-12-15 18:39] LABS: Lymphocytes Pleural Fluid 78 %; Macrophages Pleural Fluid 2 %; Monocytes Pleural Fluid 13 %; Neutrophils Pleural Fluid 7 % (0-25)
--- NOTE | 2022-12-15 18:53 | ADMGEN ---
This patient, Dinah Hagen, was admitted to [facility] Surg Room 304-01. Patient/family oriented to hospital policies and general routines including ID bracelet, bed and alarms, visiting hours, pain management, procedures, bathroom and other care routines, personal items, smoking policy, room service/diet, and visiting hours. Information on how to activate the Rapid Response Team has been discussed. Patient/Family are encouraged to report perceived risks to care and to ask questions if they do not understand what they are told or what they should do.
--- NOTE | 2022-12-15 23:11 | PM.IMHP ---
H&P: HPI History of Present Illness Date/Time: 12/15/22 23:11 Chief Complaint: Referral from primary care provider Narrative: This is a 67-year-old female patient who came to the emergency room with complaints of shortness of breath. The patient has a known pleural effusion. She has had over 100 lb weight loss over the last 7 months. She has had multiple tests performed. She also has an appointment with Hematology for thrombocytosis. White count is 10.9. H&H 11.5 and 35.7. Sodium low of 130. Chloride 97. Chest x-ray was read as stable moderate size loculated right pleural effusion small left pleural effusion. Mild atelectasis bilaterally. The patient had a successful ultrasound-guided thoracentesis yielding 100 mL of clear yellow fluid. That was sent for cytology among other labs. The patient stated that she is too weak to take care of herself at home and that she is in the process of getting home health because she could no longer take care of herself. The patient stated that she has become too weak and she has fallen quite a bit and hurt her right knee in the past. She said she uses a walker and she is very cautious but she is always afraid that she is going to fall again. Patient stated that she is too nauseated to eat and she has had poor oral intake. She was given Zofran IV in the emergency room she stated that helped her quite a bit. The patient stated that her oral Zofran is not working at home anymore. The patient is being admitted to observation status on the date of service of 12/15/2022. Review of Systems Review of Systems: All systems reviewed & are unremarkable except as noted in HPI and below Constitutional: Constitutional: Reports as per HPI and Reports no additional constitutional complaints Eyes: Eyes: Reports as per HPI and Reports no additional eye complaints ENT: Reports system reviewed and no additional complaints, except as documented and Reports Normal hearing present Cardiovascular: Cardiovascular: Reports no additional cardiovascular complaints Respiratory: Respiratory: Reports no additional respiratory complaints and Reports no additional respiratory complaints Gastrointestinal: Gastrointestinal: Reports as per HPI and Reports no additional gastrointestinal complaints Musculoskeletal: Musculoskeletal: Reports no additional musculoskeletal complaints Integumentary/Breasts: Skin/Breast: Reports system reviewed and no additional complaints, except as docu and Reports as per HPI Neurologic: Reports system reviewed and no additional complaints, except as documented, Reports as per HPI and Reports Normal hearing present Psychiatric: Psychiatric: Reports no additional psychiatric complaints and Reports as per HPI Endocrine: Endocrine: Reports no additional endocrine complaints Hematologic/Lymphatic: Hematologic/Lymphatic: Reports no additional hematologic/lymphatic complaints Allergic/Immunologic: Allergic/Immunologic: Reports no additional allergic/immunologic complaints [facility] Past Medical History Medical History (Updated 12/15/22 @ 23:37 by Sugey Bach NP) Chronic GERD Depression with anxiety Eczema Follow[facility] by dermatology at [facility]. Hyperlipidemia Hypertension Positive antinuclear antibody Renal cyst Thrombocytosis Surgical History Surgical History History of arthroscopy of left shoulder (~2019) History of carpal tunnel surgery (~2019) Family History Family History Mother Diabetes mellitus Hypertension Father Heart attack Social History Social History (Updated 12/15/22 @ 23:29 by Sugey Bach NP) Social History: The patient lives home alone. She is and has no children. surrogate decision-maker: Zohra Bucio, sister. CODE STATUS: Do not resuscitate Smoking status: Former smoker Second hand tobacco smoke exposure: No Alcohol intake: pablo
[2022-12-16 04:25] VITALS: BP 124/62; PULSE 79; RESP 16; TEMP 36.3; O2SAT 100
[2022-12-16] MEDS: ACETAMINOPHEN 325 MG TABLET 650 MG PO ×3 (06:22→18:12)
[2022-12-16] MEDS: ONDANSETRON INJ 4 MG/2 ML VIAL IV PUSH ×2 (06:22→20:48)
[2022-12-16] MEDS: CEPHALEXIN 250 MG CAPSULE PO ×3 (06:22→20:57)
[2022-12-16 06:52] LABS: Basophils Absolute Auto 0.1 K/mm3 (0.0-0.1); Eosinophils Absolute Auto 0.6 K/mm3 (0-0.3); Eosinophils Percent Auto 7.1 % (0-4.4); Hematocrit 33.2 % (37.0-47.0); Hemoglobin 10.8 g/dL (12.0-15.0); Immature Granulocyte Absolute 0.16 K/mm3 (0.00-0.031); Lymphocytes Absolute Auto 1.24 K/mm3 (0.9-3.2); Lymphocytes Percent Auto 15.5 % (18.3-44.2); Mean Corpuscular HGB Conc 32.5 g/dl (32-36); Mean Corpuscular Hemoglobin 25.9 pg (26-34); Mean Corpuscular Volume 79.6 fl (80-100); Mean Platelet Volume 8.5 fl (7.4-10.4); Monocytes Absolute Auto 1.1 K/mm3 (0.1-0.6); Monocytes Percent Auto 13.3 % (2.6-8.5); Neutrophils Absolute Auto 4.9 K/mm3 (1.3-6.7); Neutrophils Percent Auto 61.1 % (45.5-73.1); Platelet Count Result 631 k/mm3 (150-375); Red Blood Count 4.17 M/mm3 (4.2-5.4); Red Cell Distribution Width 14.2 % (11.5-14.5)
[2022-12-16 07:14] LABS: Alanine Aminotransferase 13 U/L (6-35); Albumin Level 3.1 g/dL (3.5-5.1); Alkaline Phosphatase 84 U/L (38-126); Anion Gap 5 mmol/L (8-16); Aspartate Amino Transferase 25 U/L (14-36); Bilirubin,Total 0.6 mg/dL (0.2-1.3); Blood Urea Nitrogen 15 mg/dL (7-17); Calcium 8.7 mg/dL (8.4-10.2); Carbon Dioxide 26 mmol/L (22-30); Chloride 97 mmol/L (98-107); Estimated CRCL calculation 47 ml/min; Estimated Glomerular Filt Rate > 60; Glucose 92 mg/dL (65-110); Magnesium 2.2 mg/dL (1.6-2.3); Potassium 3.6 mmol/L (3.4-5.0); Sodium 128 mmol/L (137-145)
[2022-12-16] MEDS: ENOXAPARIN 40 MG/0.4 ML SYRINGE SUB-Q (09:27)
[2022-12-16] MEDS: FAMOTIDINE 20 MG/2 ML VIAL IV PUSH ×2 (09:27→20:54)
[2022-12-16] MEDS: lisinopriL 10 MG TABLET PO (09:28)
[2022-12-16] MEDS: PIMECROLIMUS 1% 30 GM CREAM 1 APPLIC TOPICAL ×2 (09:28→18:12)
[2022-12-16] MEDS: LORATADINE 10 MG TABLET PO (10:55)
--- NOTE | 2022-12-16 12:31 | PDONCCN ---
HPI - Date of Consult Date/Time: 12/16/22 12:31 Requesting Physician: French Hearn MD Primary Care Provider: Cori Callahan MD - Consult Narrative Reason for consult: Thrombocytosis Narrative: Dinah Hagen is a 67 year old female with history of eczema rash with itching as well as GERD depression and anxiety who had appointment with my office on December 24 came into the ER with increasing shortness of breath along with generalize itching. She has lost over 100 lb weight in last several months duration. She had chest x-ray done that showed stable moderate size right sided pleural effusion and small left-sided pleural effusion. Patient had thoracentesis performed with 100 cc of clear yellow fluid removed and pathology is pending. She denies any previous history of thromboembolic events including stroke and heart attack. Her labs showed platelet count of 110335 with elevated WBC count of 10.9 and platelet of 11.5. Complain of tiredness and fatigue. No melena hematochezia. No other new complaints. Review of Systems - Review of Systems All systems reviewed & are unremarkable except as noted in HPI and bel - Neurologic Reports system reviewed and no additional complaints, except as documented, Reports hearing normal [facility] Medical History: Medical History (Last Updated 12/15/22 @ 23:37 by Sugey Bach NP) Chronic GERD Depression with anxiety Eczema Followed by dermatology at [facility]. Hyperlipidemia Hypertension Positive antinuclear antibody Renal cyst Thrombocytosis Surgical History: Surgical History (Last Reviewed 12/15/22 @ 23:20 by Sugey Bach NP) History of arthroscopy of left shoulder Onset Date: ~2018 History of carpal tunnel surgery Onset Date: ~2019 Family History: Family History (Last Reviewed 12/15/22 @ 23:20 by Sugey Bach NP) Mother Diabetes mellitus Hypertension Father Heart attack - Social History Social History: Social History (Last Updated 12/15/22 @ 23:29 by Sugey Bach NP) Gender Identity: Gender identity (if verbalized by the patient): Female Sexual Orientation: Sexual Orientation (if Verbalized by the Patient): Straight or Heterosexual Alcohol Use: Alcohol intake: never Substance Use: Substance use: never Substance use type: does not use Others: Spiritual care concerns: No Agree to blood products: Yes Living Arrangements: Living arrangements: alone Oppucation/Education: Occupation/Education: retired Smoking Status: Smoking status: Former smoker Second hand tobacco smoke exposure: No Social Determinants of Health: Has the Lack of Transportation Kept You From Medical Appointments or From Getting Medications?: Yes Within the Past 12 Months, Were You Worried Whether Your Food Would Run Out Before You Got Money to Buy More?: Never True What is Your Housing Situation Today?: I Have Housing Are You Worried That in the Next 2 Months, You May Not Have Your Own Housing to Live In?: No Do You Have Trouble Paying Your Heating Or Electricity Bill?: No Do You Have Trouble Paying For Medicines?: No Are You Currently Unemployed and Looking for Work?: No Highest Level of Education Completed: High School Diploma/GED Do You Have Trouble With Childcare or the Care of a Family Member?: No Exam - Vital Signs Vital Signs - 24 hr 12/15/22 12:45 12/15/22 13:45 12/15/22 15:50 Temperature Pulse Rate 109 H 109 H 98 Respiratory Rate 22 H 20 20 Blood Pressure 130/76 120/65 115/50 L Pulse Oximetry 100 99 98 Oxygen Delivery 12/15/22 15:45 12/15/22 17:37 12/15/22 18:17 Temperature Pulse Rate 94 99 98 Respiratory Rate 20 22 H 18 Blood Pressure 129/66 114/65 110/60 Pulse Oximetry 97 99 99 Oxygen Delivery 12/15/22 18:24 12/15/22 18:55 12/15/22 21:52 Temperature 36.6 C 36.3 C L Pulse Rate 97 104 H 114 H Respiratory Rate 22 H 18 16
[2022-12-16 12:34] VITALS: BMI 26.6
[2022-12-16 14:28] LABS: Erythrocyte Sedimentation Rate 135 mm/hr (0-20)
[2022-12-16 15:30] VITALS: BP 110/59; PULSE 89; RESP 12; TEMP 36.5; O2SAT 97
[2022-12-16 16:40] LABS: Iron 19 ug/dL (37-170)
[2022-12-16 16:58] LABS: Percent Iron Saturation 13 % (20-50)
[2022-12-16 17:02] LABS: CRP 14.9 mg/dL (<1.0)
[2022-12-16 17:51] LABS: Folic Acid 3.3 ng/mL (2.76->20)
--- NOTE | 2022-12-16 18:03 | WPDGICN ---
Assessment and Plan Assessment and plan (1) Nausea: Code(s): R11.0 - Nausea Status: Acute Assessment and Plan: will proceed with egd tomorrow (2) Loss of appetite: Code(s): R63.0 - Anorexia Status: Acute (3) Unexplained weight loss: Code(s): R63.4 - Abnormal weight loss Status: Acute Assessment and Plan: pending cytology of effusion will do egd hem-oncology on board if work up negative we can always a colonoscopy later on (4) Pleural effusion: Code(s): J90 - Pleural effusion, not elsewhere classified Status: Acute Assessment and Plan: pending result (5) Chronic GERD: Code(s): K21.9 - Gastro-esophageal reflux disease without esophagitis Status: Acute (6) Thrombocytosis: Code(s): D75.839 - Thrombocytosis, unspecified Status: Acute GI Consult Note Consult date/time: 12/16/22 18:03 Reason for consult: nausea, anorexia, weight loss HPI: Dinah Hagen is a 67 year old female who came to the emergency room with progressive shortness of breath.? She says that after having a comminuted inferior pole left patella fracture 01/2022 that required open reduction internal fixation left comminuted inferior pole patella fracture with usp placement that food never tasted good and for same reason was not eating much with subsequent weight loss, recently also nausea. Never had EGD, she says that had a colonoscopy 3-[address] Vásquez and she is not due just yet. Also noted to have thrombocytosis and evaluted by hematology.? White count is 10.9.? H&H 11.5 and 35.7.? Sodium low of 130.? Chloride 97.? Chest x-ray reviewed, stable moderate size loculated right pleural effusion small left pleural effusion.? Mild atelectasis bilaterally.? The patient had a successful ultrasound-guided thoracentesis yielding 100 mL of clear yellow fluid. Denies any bowel changes. Review of Systems Review of Systems: All systems reviewed & are unremarkable except as noted in HPI and below Constitutional: Constitutional: Denies chills, Reports fatigue and Denies fever(s) Comments: Positive unintended weight loss. Eyes: Eyes: Denies blurry vision ENT: Denies nasal congestion and Denies sore throat Cardiovascular: Cardiovascular: Denies chest pain, Denies rapid heart rate and Denies radiating jaw, neck or arm pain Respiratory: Respiratory: Denies cough, Reports dyspnea and Denies wheezing Gastrointestinal: Gastrointestinal: Denies abdominal pain, Denies nausea and Denies vomiting Genitourinary: Genitourinary: Denies urinary urgency Musculoskeletal: Musculoskeletal: Denies myalgias Integumentary/Breasts: Skin/Breast: Denies rash Neurologic: Denies Abnormal speech present Psychiatric: Psychiatric: Denies behavioral changes [facility] Past Medical History Medical History (Updated 12/16/22 @ 18:11 by Carmelo Patel MD) Chronic GERD Depression with anxiety Eczema Followed by dermatology at [facility]. Hyperlipidemia Hypertension Loss of appetite Nausea Positive antinuclear antibody Renal cyst Thrombocytosis Surgical History Surgical History (Updated 12/16/22 @ 12:36 by Clarence Mazariegos MD) History of arthroscopy of left shoulder (~2019) History of carpal tunnel surgery (~2019) Family History Family History Mother Diabetes mellitus Hypertension Father Heart attack Social History Social History (Updated 12/15/22 @ 23:29 by Sugey Bach NP) Social History: The patient lives home alone. She is and has no children. surrogate decision-maker: Zohra Bucio, sister. CODE STATUS: Do not resuscitate Smoking status: Former smoker Second hand tobacco smoke exposure: No Alcohol intake: never Substance use: never Substance use type: does not use Lack of Transportation: YES Lack of Food: Never True Current Housing: I Have Housing Concerne
--- NOTE | 2022-12-16 18:49 | PM.IMPN ---
Progress Note: A&P Assessment and Plan (1) Pleural effusion: Code(s): J90 - Pleural effusion, not elsewhere classified Status: Acute Assessment and Plan: The patient had a thoracentesis which was successful ultrasound-guided thoracentesis that yielded 100 mL of clear yellow fluid. That sample was sent for cytology and other labs. The patient stated that she is less short of breath and that did seem to help. The patient has a stable moderate size loculated right pleural effusion and a small left pleural effusion. (2) Thrombocytosis: Code(s): D75.839 - Thrombocytosis, unspecified Status: Acute Assessment and Plan: Hematology has been consulted. The patient stated that she has an appointment with him outpatient. (3) Depression with anxiety: Code(s): F41.8 - Other specified anxiety disorders Status: Acute Assessment and Plan: Continue with alprazolam Continue with Remeron Continue with Seroquel (4) Hypertension: Code(s): I10 - Essential (primary) hypertension Status: Acute Assessment and Plan: Continue with lisinopril (5) Eczema: Code(s): L30.9 - Dermatitis, unspecified Status: Acute Assessment and Plan: Continue with Elidil (6) Hyperlipidemia: Code(s): E78.5 - Hyperlipidemia, unspecified Status: Acute Assessment and Plan: Heart healthy diet (7) Chronic GERD: Code(s): K21.9 - Gastro-esophageal reflux disease without esophagitis Status: Acute Assessment and Plan: The patient has been having some nausea and vomiting. GI was consulted and saw the patient as she has lost 100 lb in approximately 10 months her last. She did have an abdominal MRI on 10/26/2022 was was read as the following: Hepatic lesion of concern on prior CT with MRI signal changes on saturation the post phase imaging most consistent with focal hepatic steatosis. Additional 1.4 cm flash filling hemangioma and a few smaller hepatic cysts. 2. Cholelithiasis. 3. Moderate to large right and small left pleural effusions. Continue with Zofran Subjective Date/time seen: 12/16/22 1025 Review of Systems Review of Systems: All systems reviewed & are unremarkable except as noted in HPI and below Gastrointestinal: Gastrointestinal: Reports nausea Comments: Pt reports progressive weight loss of up to 100 pounds in the past year. States she started loosing weight and had decreased appetite after she went to the [facility] for rehab after a knee injury and the food was so bad she wouldn't eat it. States then she started becoming nauseous and relates this to the decreased intake. Genitourinary: Comments: Denies any urinary frequency, dysuria, suprapubic pain or flank pain. Musculoskeletal: Comments: Denies any weakness, joint pain or swelling or difficulty with movement Psychiatric: Psychiatric: Reports no additional psychiatric complaints Exam Const: General: comfortable and no acute distress Other: Pt is alert and oriented x 4 and appears in no acute distress. HENMT: Face/Nose/Sinus: Normal nares present Eyes: General: appearance normal, both eyes and all related structures Sclera: sclerae normal Pupils: Equal, round and reactive pupils present EOM: EOMs intact bilaterally Neck: Neck: supple and no JVD Resp: Effort & Inspection: normal respiratory effort Auscultation: clear to auscultation bilaterally Other: Pt appears in no acute respiratory distress. Able to speak in complete sentences without difficulty. No use of accessory muscles appreciated. Lungs are clear and equal bilaterally. Cardio: Rate: regular rate Rhythm: regular rhythm Other: No rub, murmur, or gallop noted GI: Other: Abdomen is soft, nondistended, nontender to palpation with bowel sounds present x 4 quadrants. Skin: Other: Skin is dry and scaley to bilateral arms and legs. Pt reports she goes to a associate software application engineer and they haven't fou
[2022-12-16] MEDS: MIRTAZAPINE 7.5 MG TABLET PO (20:57)
[2022-12-16] MEDS: QUEtiapine FUMARATE 25 MG TABLET PO (20:58)
[2022-12-16 21:46] VITALS: BP 113/54; PULSE 85; RESP 14; TEMP 37.1; O2SAT 97
[2022-12-17] VITALS (8 sets, daily range): BP systolic 96–116; BP diastolic 55–65; PULSE 76–111; RESP 14–20; TEMP 36.2–36.9; O2SAT 91–100
[2022-12-17] MEDS: CEPHALEXIN 250 MG CAPSULE PO ×3 (05:46→21:04)
[2022-12-17] MEDS: ACETAMINOPHEN 325 MG TABLET 650 MG PO ×3 (05:46→18:05)
[2022-12-17] MEDS: ONDANSETRON INJ 4 MG/2 ML VIAL IV PUSH ×3 (05:46→21:04)
[2022-12-17 07:21] LABS: Basophils Absolute Auto 0.1 K/mm3 (0.0-0.1); Basophils Percent Auto 1.3 % (0.2-1.2); Eosinophils Absolute Auto 0.7 K/mm3 (0-0.3); Hematocrit 32.2 % (37.0-47.0); Hemoglobin 10.5 g/dL (12.0-15.0); Immature Granulocyte Absolute 0.39 K/mm3 (0.00-0.031); Immature Granulocyte Percent A 4.4 % (0-0.5); Lymphocytes Absolute Auto 1.74 K/mm3 (0.9-3.2); Lymphocytes Percent Auto 19.5 % (18.3-44.2); Mean Corpuscular HGB Conc 32.6 g/dl (32-36); Mean Corpuscular Volume 79.7 fl (80-100); Monocytes Percent Auto 11.4 % (2.6-8.5); Neutrophils Absolute Auto 4.9 K/mm3 (1.3-6.7); Neutrophils Percent Auto 55.4 % (45.5-73.1); Platelet Count Result 706 k/mm3 (150-375); Red Blood Count 4.04 M/mm3 (4.2-5.4); Red Cell Distribution Width 14.1 % (11.5-14.5); White Blood Count 8.9 K/mm3 (4.5-10.0)
[2022-12-17 07:35] LABS: Anion Gap 5 mmol/L (8-16); Blood Urea Nitrogen 16 mg/dL (7-17); Calcium 8.5 mg/dL (8.4-10.2); Carbon Dioxide 27 mmol/L (22-30); Chloride 97 mmol/L (98-107); Estimated CRCL calculation 47 ml/min; Estimated Glomerular Filt Rate > 60; Glucose 83 mg/dL (65-110); Potassium 3.4 mmol/L (3.4-5.0); Sodium 129 mmol/L (137-145)
[2022-12-17] MEDS: FAMOTIDINE 20 MG/2 ML VIAL IV PUSH (09:39)
[2022-12-17] MEDS: PIMECROLIMUS 1% 30 GM CREAM 1 APPLIC TOPICAL ×2 (09:39→18:10)
[2022-12-17] MEDS: ENOXAPARIN 40 MG/0.4 ML SYRINGE SUB-Q (09:39)
--- NOTE | 2022-12-17 10:11 | WPDANESEPPF ---
Anes - Initial Pre Proc Eval Procedure: Operation Date: 12/17/22 15:00 Proposed Procedures p Esophagogastroduodenoscopy - Carmelo Patel MD Date/Time: 12/17/22 10:11 Surgeon: French Hearn MD Pre Op Diagnosis: PLEURAL EFFUSION,WEIGHT LOSS Patient Data Age: 67 Gender: F Height: 1.55 m Weight: 64 kg Last Vital Signs Temp 36.9 C 12/17/22 06:00 Pulse 84 12/17/22 08:00 Resp 18 12/17/22 08:00 BP 116/55 L 12/17/22 06:00 Pulse Ox 91 12/17/22 08:00 O2 Del Method Room Air 12/17/22 08:00 Allergies Allergy/AdvReac Type Severity Reaction Status Date / Time naproxen [From Aleve] Allergy Abdominal Verified 12/17/22 10:09 Pain tetracycline AdvReac Mild yeast Verified 12/17/22 10:09 infection Home Medications Medication Instructions Recorded Confirmed Type Saccharomyces boulardii 250 mg 250 mg PO BID 06/19/21 12/13/22 History capsule (Florastor) acetaminophen 325 mg tablet (Mapap 650 mg PO Q6H #90 tabs 02/23/22 12/15/22 Rx (acetaminophen)) sennosides 8.6 mg-docusate sodium 2 tab-cap PO BID #60 tabs 02/23/22 12/13/22 Rx 50 mg tablet (Senokot-S) lisinopril 10 mg tablet 10 mg PO DAILY #30 tabs 10/20/22 12/15/22 Rx pimecrolimus 1 % topical cream 1 applic topical BID 10/20/22 12/15/22 History quetiapine 25 mg tablet (Seroquel) 25 mg PO QHS #30 tabs 10/20/22 12/15/22 Rx cetirizine 10 mg tablet 10 mg PO DAILY allergy symptoms 10/21/22 12/15/22 Rx #30 tabs ondansetron 8 mg disintegrating 8 mg PO Q8H PRN nausea and 11/16/22 12/15/22 Rx tablet vomiting #20 tabs cephalexin 250 mg capsule 250 mg PO Q8H 7 days #21 caps 12/13/22 12/15/22 Rx famotidine 20 mg tablet 20 mg PO DAILY #30 tabs 12/13/22 12/15/22 Rx mirtazapine 15 mg tablet (Remeron) 7.5 mg PO QHS #30 tabs 12/13/22 12/15/22 Rx Laboratory Tests 12/16/22 12/16/22 12/16/22 13:40 13:40 13:40 WBC RBC Hgb Hct MCV MCH MCHC RDW Plt Count MPV Immature Gran % (Auto) Neut % (Auto) Lymph % (Auto) [place] % (Auto) Eos % (Auto) Baso % (Auto) Lymph # (Auto) [place] # (Auto) Eos # (Auto) Baso # (Auto) Abs Immat Gran (auto) Absolute Neuts (auto) Absolute Nucleated RBC Nucleated RBC % ESR 135 mm/hr H mm/hr (0-20) Sodium Potassium Chloride Carbon Dioxide Anion Gap BUN Creatinine Estim Creat Clear Calc Estimated GFR Glucose Calcium Iron 19 ug/dL L ug/dL (37-170) TIBC 146 ug/dL L ug/dL (261-462) % Saturation 13 % L % (20-50) Ferritin 327.00 ng/mL H ng/mL (11.1-264) C-Reactive Protein 14.9 mg/dL H mg/dL (<1.0) Vitamin B12 302.0 pg/mL pg/mL (239-931) Folate 3.3 ng/mL ng/mL (2.76->20) JAK2 V617F Specimen JAK2 V617F Gene JAK2 V617F Exon JAK2 V617F Mut Indic JAK2 V617F Mutation JAK2 V617F Mut Type JAK2 V617F Mut Freq JAK2 V617F Mut Reference JAK2 12-15 Nucleotide Chg JAK2 12-15 Amino Acid Chg JAK2 Interpret/Report JAK2 V617F Comment Ref Lab Specimen ID 12/16/22 12/17/22 12/17/22 13:40 06:09 06:09 WBC 8.9 K/mm3 K/mm3 (4.5-10.0) RBC 4.04 M/mm3 L M/mm3 (4.2-5.4) Hgb 10.5 g/dL L g/dL (12.0-15.0) Hct 32.2 % L % (37.0-47.0) MCV 79.7 fl L fl (80-100) MCH 26.0 pg pg (26-34) MCHC 32.6 g/dl g/dl (32-36) RDW 14.1 % % (11.5-14.5) Plt Count 706 k/mm3 H k/m
[2022-12-17] MEDS: LACTATED RINGERS 1,000 ML 150 ML IV CONT (10:13)
[2022-12-17] MEDS: lisinopriL 10 MG TABLET PO (13:03)
--- NOTE | 2022-12-17 17:19 | PM.IMPN ---
Progress Note: A&P Assessment and Plan (1) Pleural effusion: Code(s): J90 - Pleural effusion, not elsewhere classified Status: Acute Assessment and Plan: The patient had a thoracentesis which was successful ultrasound-guided thoracentesis that yielded 100 mL of clear yellow fluid. That sample was sent for cytology and other labs. The patient stated that she is less short of breath and that did seem to help. The patient has a stable moderate size loculated right pleural effusion and a small left pleural effusion. (2) Thrombocytosis: Code(s): D75.839 - Thrombocytosis, unspecified Status: Acute Assessment and Plan: Hematology has been consulted. The patient stated that she has an appointment with him outpatient. (3) Depression with anxiety: Code(s): F41.8 - Other specified anxiety disorders Status: Acute Assessment and Plan: Continue with alprazolam Continue with Remeron Continue with Seroquel (4) Hypertension: Code(s): I10 - Essential (primary) hypertension Status: Acute Assessment and Plan: Continue with lisinopril (5) Eczema: Code(s): L30.9 - Dermatitis, unspecified Status: Acute Assessment and Plan: Continue with Elidil (6) Hyperlipidemia: Code(s): E78.5 - Hyperlipidemia, unspecified Status: Acute Assessment and Plan: Heart healthy diet (7) Chronic GERD: Code(s): K21.9 - Gastro-esophageal reflux disease without esophagitis Status: Acute Assessment and Plan: The patient has been having some nausea and vomiting. GI was consulted and saw the patient as she has lost 100 lb in approximately 10 months her last. She did have an abdominal MRI on 10/26/2022 was was read as the following: Hepatic lesion of concern on prior CT with MRI signal changes on saturation the post phase imaging most consistent with focal hepatic steatosis. Additional 1.4 cm flash filling hemangioma and a few smaller hepatic cysts. 2. Cholelithiasis. 3. Moderate to large right and small left pleural effusions. Continue with Zofran Subjective Date/time seen: 12/17/22 1405 Review of Systems Review of Systems: All systems reviewed & are unremarkable except as noted in HPI and below Constitutional: Constitutional: Reports lethargy Gastrointestinal: Gastrointestinal: Reports nausea Exam Narrative: On initial rounding patient was out of the department for EGD. Upon return pt alert and in no distress. c/o nausea but continues to eat her lunch. Const: General: cooperative, healthy appearing, comfortable, no acute distress, well developed, alert, awake, Physically active, tired appearing, average body habitus and well nourished Nutritional Appearance: average body habitus and well nourished Orientation/consciousness: oriented to person, oriented to place, oriented to time and patient oriented x3 Limitations: no limitations Other: Pt is alert and oriented x 4 and appears in no acute distress. HENMT: Head: normal to inspection, No palpable skull fracture present, normocephalic, atraumatic and abrasion Ears: hearing grossly normal bilaterally and external ears normal Face/Nose/Sinus: Normal external nose present and Normal nares present Eyes: General: appearance normal, both eyes and all related structures Alignment and Position: alignment normal Periorbital: periorbital findings normal Eyelids: eyelids normal Sclera: sclerae normal Pupils: Equal, round and reactive pupils present EOM: EOMs intact bilaterally Neck: Neck: normal visual inspection, full ROM, no lymphadenopathy, trachea midline, supple and no JVD Chest: Chest palpation & inspection: normal inspection of the chest Resp: Effort & Inspection: normal respiratory effort Auscultation: clear to auscultation bilaterally Other: Pt appears in no acute respiratory distress. Able to speak in complete sentences without difficulty. No use of accessory muscles
[2022-12-17] MEDS: LORATADINE 10 MG TABLET PO (18:06)
[2022-12-17] MEDS: MIRTAZAPINE 7.5 MG TABLET PO (21:04)
[2022-12-17] MEDS: QUEtiapine FUMARATE 25 MG TABLET PO (21:04)
[2022-12-18] MEDS: ACETAMINOPHEN 325 MG TABLET 650 MG PO ×3 (05:30→17:04)
[2022-12-18] MEDS: ONDANSETRON INJ 4 MG/2 ML VIAL IV PUSH ×3 (05:30→17:06)
[2022-12-18] MEDS: CEPHALEXIN 250 MG CAPSULE PO ×3 (05:30→20:29)
[2022-12-18 06:00] VITALS: BP 111/58; PULSE 94; RESP 20; TEMP 36.5; O2SAT 97
[2022-12-18 06:37] LABS: Basophils Absolute Auto 0.1 K/mm3 (0.0-0.1); Eosinophils Absolute Auto 0.7 K/mm3 (0-0.3); Eosinophils Percent Auto 7.1 % (0-4.4); Hematocrit 33.3 % (37.0-47.0); Hemoglobin 10.4 g/dL (12.0-15.0); Immature Granulocyte Absolute 0.21 K/mm3 (0.00-0.031); Immature Granulocyte Percent A 2.2 % (0-0.5); Lymphocytes Absolute Auto 1.24 K/mm3 (0.9-3.2); Lymphocytes Percent Auto 12.9 % (18.3-44.2); Mean Corpuscular HGB Conc 31.2 g/dl (32-36); Mean Corpuscular Hemoglobin 25.9 pg (26-34); Mean Platelet Volume 8.8 fl (7.4-10.4); Monocytes Absolute Auto 1.2 K/mm3 (0.1-0.6); Monocytes Percent Auto 12.1 % (2.6-8.5); Neutrophils Absolute Auto 6.2 K/mm3 (1.3-6.7); Neutrophils Percent Auto 64.7 % (45.5-73.1); Platelet Count Result 683 k/mm3 (150-375); Red Blood Count 4.01 M/mm3 (4.2-5.4); Red Cell Distribution Width 14.5 % (11.5-14.5); White Blood Count 9.6 K/mm3 (4.5-10.0)
[2022-12-18 06:51] LABS: Anion Gap 6 mmol/L (8-16); Blood Urea Nitrogen 15 mg/dL (7-17); Calcium 8.2 mg/dL (8.4-10.2); Carbon Dioxide 23 mmol/L (22-30); Chloride 103 mmol/L (98-107); Estimated CRCL calculation 52 ml/min; Estimated Glomerular Filt Rate > 60; Glucose 99 mg/dL (65-110); Potassium 3.6 mmol/L (3.4-5.0); Sodium 132 mmol/L (137-145)
[2022-12-18] MEDS: lisinopriL 10 MG TABLET PO (09:30)
[2022-12-18] MEDS: ENOXAPARIN 40 MG/0.4 ML SYRINGE SUB-Q (09:30)
[2022-12-18] MEDS: PANTOPRAZOLE 40 MG TABLET PO ×2 (09:31→20:29)
[2022-12-18] MEDS: PIMECROLIMUS 1% 30 GM CREAM 1 APPLIC TOPICAL ×2 (09:32→17:04)
--- NOTE | 2022-12-18 10:36 | PM.IMPN ---
Progress Note: A&P Assessment and Plan (1) Pleural effusion: Code(s): J90 - Pleural effusion, not elsewhere classified Status: Acute Assessment and Plan: The patient had a thoracentesis which was successful ultrasound-guided thoracentesis that yielded 100 mL of clear yellow fluid. That sample was sent for cytology and other labs. The patient stated that she is less short of breath and that did seem to help. The patient has a stable moderate size loculated right pleural effusion and a small left pleural effusion. (2) Thrombocytosis: Code(s): D75.839 - Thrombocytosis, unspecified Status: Acute Assessment and Plan: Hematology has been consulted. The patient stated that she has an appointment with him outpatient. (3) Depression with anxiety: Code(s): F41.8 - Other specified anxiety disorders Status: Acute Assessment and Plan: Continue with alprazolam Continue with Remeron Continue with Seroquel (4) Hypertension: Code(s): I10 - Essential (primary) hypertension Status: Acute Assessment and Plan: Continue with lisinopril (5) Eczema: Code(s): L30.9 - Dermatitis, unspecified Status: Acute Assessment and Plan: Continue with Elidil (6) Hyperlipidemia: Code(s): E78.5 - Hyperlipidemia, unspecified Status: Acute Assessment and Plan: Heart healthy diet (7) Chronic GERD: Code(s): K21.9 - Gastro-esophageal reflux disease without esophagitis Status: Acute Assessment and Plan: The patient has been having some nausea and vomiting. GI was consulted and saw the patient as she has lost 100 lb in approximately 10 months her last. She did have an abdominal MRI on 10/26/2022 was was read as the following: Hepatic lesion of concern on prior CT with MRI signal changes on saturation the post phase imaging most consistent with focal hepatic steatosis. Additional 1.4 cm flash filling hemangioma and a few smaller hepatic cysts. 2. Cholelithiasis. 3. Moderate to large right and small left pleural effusions. Continue with Zofran Plan Loculated R Pleural effusion s/p thoracentesis cytology showed lymphocyte predominant effusion immunohistochemistry and cytometry pending Oncology following Thrombocytosis with bicytopenia continue aspirin oncology on board Gastritis s/p EGD pathology pending Gross exam showed gastritis continue Protonix 40mg bid F/u GI on outpatient HTN Continue lisinopril Anxiety Contineu home meds Dermatitis Continue Elidil HLD 'The patient has been having some nausea and vomiting.? GI was consulted and saw the patient as she has lost 100 lb in approximately 10 months her last.? She did have an abdominal MRI on 10/26/2022 was was read as the following:?Hepatic lesion of concern on prior CT with MRI signal changes on saturation the post phase imaging most consistent with focal hepatic steatosis. Additional 1.4 cm flash filling hemangioma and a few smaller hepatic cysts. 2. Cholelithiasis. 3. Moderate to large right and small left pleural effusions. Continue with Zofran' DVT prophylaxis Subjective Date/time seen: 12/18/22 10:36 Patient was evaluated at bedside stated that she is still feel very weak and appetite has some improvement. Review of Systems Review of Systems: All systems reviewed & are unremarkable except as noted in HPI and below Constitutional: Constitutional: Reports as per HPI, Reports no additional constitutional complaints and Reports lethargy Eyes: Eyes: Reports as per HPI and Reports no additional eye complaints ENT: Reports system reviewed and no additional complaints, except as documented and Reports Normal hearing present Cardiovascular: Cardiovascular: Reports no additional cardiovascular complaints Respiratory: Respiratory: Reports no additional respiratory complaints and Reports no additional respiratory complaints Gastroin
[2022-12-18] MEDS: LORATADINE 10 MG TABLET PO (11:11)
--- NOTE | 2022-12-18 13:25 | WPDGIPROGNO ---
Progress Note: A&P Assessment and Plan (1) Nausea: Code(s): R11.0 - Nausea Status: Acute Assessment and Plan: wonder if gastritis can explain part of nausea on protonix (2) Loss of appetite: Code(s): R63.0 - Anorexia Status: Acute (3) Gastritis: Code(s): K29.70 - Gastritis, unspecified, without bleeding Status: Acute Assessment and Plan: PPI (4) Pleural effusion: Code(s): J90 - Pleural effusion, not elsewhere classified Status: Acute Assessment and Plan: preliminary report no obvious malignancy and concerning because weight loss probably will do colonoscopy Tuesday (5) Thrombocytosis: Code(s): D75.839 - Thrombocytosis, unspecified Status: Acute (6) Unexplained weight loss: Code(s): R63.4 - Abnormal weight loss Status: Acute Assessment and Plan: patient is agreeable to colonoscopy on Tuesday (7) Closed fracture of left patella: Qualifiers: Encounter type: initial encounter Fracture alignment: displaced Fracture morphology: transverse Qualified Code(s): S82.032A - Displaced transverse fracture of left patella, initial encounter for closed fracture Code(s): S82.002A - Unspecified fracture of left patella, initial encounter for closed fracture Status: Acute Subjective Date/time seen: 12/18/22 13:25 Interval history: still nausea, no other new events. EGD showed gastritis Review of Systems Review of Systems: All systems reviewed & are unremarkable except as noted in HPI and below Exam Const: General: comfortable and no acute distress HENMT: Face/Nose/Sinus: Normal nares present Eyes: General: appearance normal, both eyes and all related structures Neck: Neck: supple Resp: Auscultation: no crackles and diminished lung sounds Cardio: Rate: regular rate GI: GI Palp: Yes Soft to palpation, No Tenderness to palpation present (GI) and No Guarding due to palpation present (GI) Auscultation: normal bowel sounds Skin: General skin exam: normal color Neuro: Speech: normal speech Motor exam (neuro): 5/5 motor strength present throughout Extrem: General: normal to inspection Psych: Affect: normal affect Objective Data Vital Signs Vital Signs: Vital Signs - 24 hr 12/17/22 14:00 12/17/22 22:00 12/17/22 20:00 Temperature 98.2 F 97.2 F L Pulse Rate 92 84 Respiratory Rate 20 20 Blood Pressure 115/58 L 99/62 L Pulse Oximetry 99 96 Oxygen Delivery Room Air 12/18/22 06:00 12/18/22 07:35 Temperature 97.7 F Pulse Rate 94 Respiratory Rate 20 Blood Pressure 111/58 L Pulse Oximetry 97 Oxygen Delivery Room Air Intake/Output Intake/Output: Intake & Output 12/15/22 12/16/22 12/17/22 12/18/22 23:59 23:59 23:59 23:59 Intake Total 621 861 5413 Output Total 100 400 Balance -100 169 511 5045 Meds/Results Medications: Active Medications Generic Name Dose Route Start Last Admin Trade Name Freq PRN Reason Stop Dose Admin Acetaminophen 650 mg 12/16/22 00:00 12/18/22 12:39 Acetaminophen 325 Mg Tablet PO 650 mg Q6H MARIJA Administration Hydrocodone Bitart/Acetaminophen 1 tab 12/15/22 15:25 Hydrocodone/Acetaminophen (*Crx) 5-325 Mg Tablet PO Q4H PRN Pain Rated 4-6 Cephalexin HCl 250 mg 12/15/22 23:35 12/18/22 05:30 Cephalexin 250 Mg Capsule PO 250 mg Q8HR MARIJA Administration Enoxaparin Sodium 40 mg 12/16/22 09:00 12/18/22 09:30 Enoxaparin 40 Mg/0.4 Ml Syringe SUB-Q 40 mg DAILY MARIJA Administration Hydroxyzine HCl 10 mg 12/15/22 23:28 Hydroxyzine Hcl 10 Mg Tablet PO Q6H PRN Itching Lisinopril 10 mg 12/16/22 09:00 12/18/22 09:30 Lisinopril 10 Mg Tablet PO 10 mg DAILY MARIJA Administration Loratadine 10 mg 12/16/22 09:00 12/18/22 11:11 Loratadine 10 Mg Tablet PO 10 mg QAM MARIJA Administration Miconazole Nitrate 1 applic 12/16/22 09:00 12/18/22 09:32 Miconazol
[2022-12-18 14:00] VITALS: BP 96/53; PULSE 90; RESP 20; TEMP 36.3; O2SAT 97
--- NOTE | 2022-12-18 14:13 | PCPTNOTE ---
Attempted evaluation at 1406, but patient reports she is too tired and nauseous to get out of bed right now.
[2022-12-18 20:17] LABS: Glucose Pleural Fluid 24 mg/dL
[2022-12-18] MEDS: MIRTAZAPINE 7.5 MG TABLET PO (20:28)
[2022-12-18] MEDS: QUEtiapine FUMARATE 25 MG TABLET PO (20:29)
[2022-12-18 22:00] VITALS: BP 100/44; PULSE 101; RESP 20; TEMP 36.2; O2SAT 96
[2022-12-19] MEDS: ACETAMINOPHEN 325 MG TABLET 650 MG PO ×2 (05:50→12:37)
[2022-12-19] MEDS: CEPHALEXIN 250 MG CAPSULE PO ×2 (05:50→14:01)
[2022-12-19] MEDS: ONDANSETRON INJ 4 MG/2 ML VIAL IV PUSH ×3 (05:52→17:43)
[2022-12-19 06:00] VITALS: BP 96/52; PULSE 95; RESP 18; TEMP 36.9; O2SAT 95
[2022-12-19 06:14] LABS: Basophils Absolute Auto 0.1 K/mm3 (0.0-0.1); Eosinophils Absolute Auto 0.6 K/mm3 (0-0.3); Eosinophils Percent Auto 5.7 % (0-4.4); Hematocrit 29.6 % (37.0-47.0); Hemoglobin 9.5 g/dL (12.0-15.0); Immature Granulocyte Absolute 0.24 K/mm3 (0.00-0.031); Immature Granulocyte Percent A 2.2 % (0-0.5); Lymphocytes Absolute Auto 1.54 K/mm3 (0.9-3.2); Lymphocytes Percent Auto 13.8 % (18.3-44.2); Mean Corpuscular HGB Conc 32.1 g/dl (32-36); Mean Corpuscular Hemoglobin 26.2 pg (26-34); Mean Corpuscular Volume 81.8 fl (80-100); Mean Platelet Volume 8.6 fl (7.4-10.4); Monocytes Absolute Auto 1.4 K/mm3 (0.1-0.6); Monocytes Percent Auto 12.8 % (2.6-8.5); Neutrophils Absolute Auto 7.2 K/mm3 (1.3-6.7); Neutrophils Percent Auto 64.5 % (45.5-73.1); Platelet Count Result 553 k/mm3 (150-375); Red Blood Count 3.62 M/mm3 (4.2-5.4); Red Cell Distribution Width 14.4 % (11.5-14.5); White Blood Count 11.2 K/mm3 (4.5-10.0)
[2022-12-19 06:25] LABS: Alanine Aminotransferase 12 U/L (6-35); Albumin Level 2.6 g/dL (3.5-5.1); Alkaline Phosphatase 109 U/L (38-126); Anion Gap 5 mmol/L (8-16); Aspartate Amino Transferase 19 U/L (14-36); Bilirubin,Total 0.6 mg/dL (0.2-1.3); Blood Urea Nitrogen 11 mg/dL (7-17); Calcium 7.6 mg/dL (8.4-10.2); Carbon Dioxide 26 mmol/L (22-30); Chloride 101 mmol/L (98-107); Estimated CRCL calculation 52 ml/min; Estimated Glomerular Filt Rate > 60; Glucose 97 mg/dL (65-110); Potassium 3.4 mmol/L (3.4-5.0); Sodium 132 mmol/L (137-145)
[2022-12-19] MEDS: PANTOPRAZOLE 40 MG TABLET PO (08:43)
[2022-12-19] MEDS: lisinopriL 10 MG TABLET PO (08:43)
[2022-12-19] MEDS: ENOXAPARIN 40 MG/0.4 ML SYRINGE SUB-Q (08:43)
[2022-12-19] MEDS: PIMECROLIMUS 1% 30 GM CREAM 1 APPLIC TOPICAL (08:44)
[2022-12-19] MEDS: LORATADINE 10 MG TABLET PO (08:44)
--- NOTE | 2022-12-19 12:14 | PM.IMPN ---
Progress Note: A&P Assessment and Plan (1) Pleural effusion: Code(s): J90 - Pleural effusion, not elsewhere classified Status: Acute Assessment and Plan: The patient had a thoracentesis which was successful ultrasound-guided thoracentesis that yielded 100 mL of clear yellow fluid. That sample was sent for cytology and other labs. The patient stated that she is less short of breath and that did seem to help. The patient has a stable moderate size loculated right pleural effusion and a small left pleural effusion. (2) Thrombocytosis: Code(s): D75.839 - Thrombocytosis, unspecified Status: Acute Assessment and Plan: Hematology has been consulted. The patient stated that she has an appointment with him outpatient. (3) Depression with anxiety: Code(s): F41.8 - Other specified anxiety disorders Status: Acute Assessment and Plan: Continue with alprazolam Continue with Remeron Continue with Seroquel (4) Hypertension: Code(s): I10 - Essential (primary) hypertension Status: Acute Assessment and Plan: Continue with lisinopril (5) Eczema: Code(s): L30.9 - Dermatitis, unspecified Status: Acute Assessment and Plan: Continue with Elidil (6) Hyperlipidemia: Code(s): E78.5 - Hyperlipidemia, unspecified Status: Acute Assessment and Plan: Heart healthy diet (7) Chronic GERD: Code(s): K21.9 - Gastro-esophageal reflux disease without esophagitis Status: Acute Assessment and Plan: The patient has been having some nausea and vomiting. GI was consulted and saw the patient as she has lost 100 lb in approximately 10 months her last. She did have an abdominal MRI on 10/26/2022 was was read as the following: Hepatic lesion of concern on prior CT with MRI signal changes on saturation the post phase imaging most consistent with focal hepatic steatosis. Additional 1.4 cm flash filling hemangioma and a few smaller hepatic cysts. 2. Cholelithiasis. 3. Moderate to large right and small left pleural effusions. Continue with Zofran Plan Loculated R Pleural effusion s/p thoracentesis Pleural fluid glucose 24 cytology showed lymphocyte predominant effusion immunohistochemistry and cytometry pending Oncology following Pulm consulted Thrombocytosis with anemia Isat 13, iron sucrose started daily x 5 doses continue aspirin oncology on board Leukocytosis likely due to infection continue above workup Gastritis s/p EGD pathology pending Gross exam showed gastritis continue Protonix 40mg bid For colonoscopy on Tuesday HTN Continue lisinopril Anxiety Contineu home meds Dermatitis Continue Elidil HLD 'The patient has been having some nausea and vomiting.? GI was consulted and saw the patient as she has lost 100 lb in approximately 10 months her last.? She did have an abdominal MRI on 10/26/2022 was was read as the following:?Hepatic lesion of concern on prior CT with MRI signal changes on saturation the post phase imaging most consistent with focal hepatic steatosis. Additional 1.4 cm flash filling hemangioma and a few smaller hepatic cysts. 2. Cholelithiasis. 3. Moderate to large right and small left pleural effusions. Continue with Zofran' DVT prophylaxis Subjective Date/time seen: 12/19/22 12:14 Interval history: patient feels better today and facial expression brighter Pleural fluid has glucose of 24, Adenosine and deaminase ordered and pullm consulted for possible tube thoracostomy. Review of Systems Review of Systems: All systems reviewed & are unremarkable except as noted in HPI and below Constitutional: Constitutional: Reports as per HPI, Reports no additional constitutional complaints and Reports lethargy Eyes: Eyes: Reports as per HPI and Reports no additional eye complaints ENT: Reports system reviewed and no additional complaints, except as documente
[2022-12-19 14:00] VITALS: BP 100/39; PULSE 87; RESP 20; TEMP 36.6; O2SAT 97
[2022-12-19] MEDS: IRON SUCROSE COMPLEX 200 MG in SODIUM CHLORIDE 0.9% IV 50 ML 120 MG IVPB (14:00)
--- NOTE | 2022-12-19 15:29 | PM.IMPN ---
Subjective Date/time seen: 12/19/22 15:29 Discussed with pulrosa and he recommended transfer to a higher level of care for empyema. [facility] was called and they accepted patient. transfer process in place Objective Data Vital Signs Vital Signs: Vital Signs - 24 hr 12/18/22 20:00 12/18/22 22:00 12/19/22 06:00 Temperature 97.2 F L 98.5 F Pulse Rate 101 H 95 Respiratory Rate 20 18 Blood Pressure 100/44 L 96/52 L Pulse Oximetry 96 95 Oxygen Delivery Room Air 12/19/22 08:32 12/19/22 08:00 12/19/22 14:00 Temperature 97.9 F Pulse Rate 87 Respiratory Rate 20 Blood Pressure 100/39 L Pulse Oximetry 97 Oxygen Delivery Room Air Room Air Intake/Output Intake/Output: Intake & Output 12/16/22 12/17/22 12/18/22 12/19/22 23:59 23:59 23:59 23:59 Intake Total 755 672 5991 722 Output Total 400 Balance 104 608 6751 722 Meds/Results Medications: Active Medications Generic Name Dose Route Start Last Admin Trade Name Freq PRN Reason Stop Dose Admin Acetaminophen 650 mg 12/16/22 00:00 12/19/22 12:37 Acetaminophen 325 Mg Tablet PO 650 mg Q6H MARIJA Administration Hydrocodone Bitart/Acetaminophen 1 tab 12/15/22 15:25 Hydrocodone/Acetaminophen (*Crx) 5-325 Mg Tablet PO Q4H PRN Pain Rated 4-6 Cephalexin HCl 250 mg 12/15/22 23:35 12/19/22 14:01 Cephalexin 250 Mg Capsule PO 250 mg Q8HR MARIJA Administration Enoxaparin Sodium 40 mg 12/16/22 09:00 12/19/22 08:43 Enoxaparin 40 Mg/0.4 Ml Syringe SUB-Q 40 mg DAILY MARIJA Administration Hydroxyzine HCl 10 mg 12/15/22 23:28 Hydroxyzine Hcl 10 Mg Tablet PO Q6H PRN Itching Iron Sucrose 200 mg/ Sodium 60 mls @ 120 mls/hr 12/19/22 13:00 12/19/22 14:00 Chloride IVPB 12/23/22 09:29 120 mls/hr DAILY MARIJA Administration Piperacillin Sod/Tazobactam 100 mls @ 200 mls/hr 12/19/22 15:00 Sod 4.5 gm/ Sodium Chloride IVPB Q6H MARIJA Lisinopril 10 mg 12/16/22 09:00 12/19/22 08:43 Lisinopril 10 Mg Tablet PO 10 mg DAILY MARIJA Administration Loratadine 10 mg 12/16/22 09:00 12/19/22 08:44 Loratadine 10 Mg Tablet PO 10 mg QAM MARIJA Administration Miconazole Nitrate 1 applic 12/16/22 09:00 12/19/22 08:44 Miconazole 2% Antifungal Ointment 56 Gm TOPICAL 1 applic Q12HR MARIJA Administration Mirtazapine 7.5 mg 12/15/22 23:40 12/18/22 20:28 Mirtazapine 7.5 Mg Tablet PO 7.5 mg QHS [facility] Administration Morphine Sulfate 4 mg 12/15/22 15:25 Morphine Sulfate (*Crx) 4 Mg/Ml Inj IV PUSH Q2H PRN Pain Rated 7-10 Ondansetron HCl 4 mg 12/15/22 15:25 12/19/22 11:35 Ondansetron Inj 4 Mg/2 Ml Vial IV PUSH 4 mg Q4H PRN Administration Nausea Pantoprazole Sodium 40 mg 12/18/22 21:00 12/19/22 08:43 Pantoprazole 40 Mg Tablet PO 40 mg Q12HR [facility] Administration Pimecrolimus 1 applic 12/16/22 09:00 12/19/22 08:44 Pimecrolimus 1% 30 Gm Cream TOPICAL 1 applic BID MARIJA Administration Quetiapine Fumarate 25 mg 12/15/22 23:40 12/18/22 20:29 Quetiapine Fumarate 25 Mg Tablet PO 25 mg QHS MARIJA Administration Radiology Results: ITS Impressions Thoracentesis Ultrasound 12/15/22 17:38 IMPRESSION: 1. Successful ultrasound-guided thoracentesis yielding 100 mL of clear, yellow fluid. Chest X-Ray 12/15/22 17:39 IMPRESSION: 1. Stable moderate-sized loculated right pleural effusion. Small left pleural effusion. 2. Mild atelectasis bilaterally. Labs Labs: Laboratory Results - last 24 hr 12/15/22 12/19/22 12/19/22 17:16 05:37 05:37 WBC 11.2 H RBC 3.62 L Hgb 9.5 L Hct 29.6 L MCV 81.8 MCH 26.2 MCHC 32.1 RDW 14.4 Plt Count 553 H MPV 8.6 Immature Gran % (Auto) 2.2 H Neut % (Auto) 64.5 Lymph % (Auto) 13.8 L [place] % (Auto) 12.8 H Eos % (Auto) 5.7 H Baso % (Auto) 1.0 Lymph # (Auto) 1.54 [place] # (Auto) 1.4 H Eos # (Auto) 0.6 H Baso # (Auto) 0.
[2022-12-19] MEDS: PIPERACILLIN/TAZOBACTAM SOD 4.5 GM in SODIUM CHLORIDE 0.9% IV 100 ML 200 ML IVPB (15:55)
[2022-12-19 16:10] LABS: EDCOVIDSCREEN Negative (Negative)
--- NOTE | 2022-12-19 16:26 | WPDGIPROGNO ---
Progress Note: A&P Assessment and Plan (1) Nausea: Code(s): R11.0 - Nausea Status: Acute Assessment and Plan: wonder if gastritis can explain part of nausea on protonix antiemetics helping (2) Unexplained weight loss: Code(s): R63.4 - Abnormal weight loss Status: Acute Assessment and Plan: patient is agreeable to colonoscopy tomorrow, will start bowel prep today (3) Loss of appetite: Code(s): R63.0 - Anorexia Status: Acute (4) Gastritis: Code(s): K29.70 - Gastritis, unspecified, without bleeding Status: Acute Assessment and Plan: PPI (5) Pleural effusion: Code(s): J90 - Pleural effusion, not elsewhere classified Status: Acute Assessment and Plan: preliminary report no obvious malignancy and concerning because weight loss probably will do colonoscopy Tuesday Subjective Date/time seen: 12/19/22 16:26 Interval history: still with nausea but antiemetics helping Review of Systems Review of Systems: All systems reviewed & are unremarkable except as noted in HPI and below Exam Const: General: comfortable and no acute distress HENMT: Face/Nose/Sinus: Normal nares present Eyes: General: appearance normal, both eyes and all related structures Neck: Neck: supple Resp: Auscultation: no crackles and diminished lung sounds Cardio: Rate: regular rate GI: GI Palp: Yes Soft to palpation, No Tenderness to palpation present (GI) and No Guarding due to palpation present (GI) Auscultation: normal bowel sounds Skin: General skin exam: normal color Neuro: Speech: normal speech Motor exam (neuro): 5/5 motor strength present throughout Extrem: General: normal to inspection Psych: Affect: normal affect Objective Data Vital Signs Vital Signs: Vital Signs - 24 hr 12/18/22 20:00 12/18/22 22:00 12/19/22 06:00 Temperature 97.2 F L 98.5 F Pulse Rate 101 H 95 Respiratory Rate 20 18 Blood Pressure 100/44 L 96/52 L Pulse Oximetry 96 95 Oxygen Delivery Room Air 12/19/22 08:32 12/19/22 08:00 12/19/22 14:00 Temperature 97.9 F Pulse Rate 87 Respiratory Rate 20 Blood Pressure 100/39 L Pulse Oximetry 97 Oxygen Delivery Room Air Room Air Intake/Output Intake/Output: Intake & Output 12/16/22 12/17/22 12/18/22 12/19/22 23:59 23:59 23:59 23:59 Intake Total 391 959 7890 722 Output Total 400 Balance 679 858 2312 722 Meds/Results Medications: Active Medications Generic Name Dose Route Start Last Admin Trade Name Freq PRN Reason Stop Dose Admin Acetaminophen 650 mg 12/16/22 00:00 12/19/22 12:37 Acetaminophen 325 Mg Tablet PO 650 mg Q6H MARIJA Administration Hydrocodone Bitart/Acetaminophen 1 tab 12/15/22 15:25 Hydrocodone/Acetaminophen (*Crx) 5-325 Mg Tablet PO Q4H PRN Pain Rated 4-6 Cephalexin HCl 250 mg 12/15/22 23:35 12/19/22 14:01 Cephalexin 250 Mg Capsule PO 250 mg Q8HR MARIJA Administration Enoxaparin Sodium 40 mg 12/16/22 09:00 12/19/22 08:43 Enoxaparin 40 Mg/0.4 Ml Syringe SUB-Q 40 mg DAILY MARIJA Administration Hydroxyzine HCl 10 mg 12/15/22 23:28 Hydroxyzine Hcl 10 Mg Tablet PO Q6H PRN Itching Iron Sucrose 200 mg/ Sodium 60 mls @ 120 mls/hr 12/19/22 13:00 12/19/22 14:00 Chloride IVPB 12/23/22 09:29 120 mls/hr DAILY MARIJA Administration Piperacillin Sod/Tazobactam 100 mls @ 200 mls/hr 12/19/22 15:00 12/19/22 15:55 Sod 4.5 gm/ Sodium Chloride IVPB 200 mls/hr Q6H MARIJA Administration Lisinopril 10 mg 12/16/22 09:00 12/19/22 08:43 Lisinopril 10 Mg Tablet PO 10 mg DAILY MARIJA Administration Loratadine 10 mg 12/16/22 09:00 12/19/22 08:44 Loratadine 10 Mg Tablet PO 10 mg QAM [facility] Administration Miconazole Nitrate 1 applic 12/16/22 09:00 12/19/22 08:44 Miconazole 2% Antifungal Ointment 56 Gm TOPICAL 1 applic Q12HR MARIJA Administration Mirtazapine 7.5 mg 12/15/22 23:40
--- NOTE | 2022-12-19 17:21 | PM.TDS ---
Transfer Discharge Sum: Prov Provider Date of admission: 12/17/22 10:31 Primary care physician: Cori Callahan MD Admitting clinician: French Hearn MD Consults: 12/15/22 Care Coordination Consult Routine Comment: Reason for Consult:: Acute Rehab Consult Consult to Physician Routine Comment: spoke to dr @0838 (,) Consulting Provider: Carmelo Patel rn call center/MD group to consult: GI consult Reason for consultation: Weight loss with poor appetite and nausea Has provider been notified: Yes Consult to Physician Routine Comment: spoke to dr @0839 (,) Consulting Provider: Clarence Mazariegos rn call center/MD group to consult: Dr. Mazariegos Reason for consultation: Thrombocytosis Has provider been notified: Yes Wound/ET Consult Routine Reason for Consult:: Sacral wound 12/18/22 Consult to Dietitian Routine Reason for Consult:: weight loss 12/19/22 Consult to Physician Routine Comment: Spoke to 12.19.22 @ 0815--/us Consulting Provider: Ngozi Shine rn call center/MD group to consult: Pulmonology- Dr will see patient 3.20 Reason for consultation: Complicated pleural effusion glucose 24 Has provider been notified: Yes DS: Admitting Diagnosis Discharge Date 12/19/22 Admitting Diagnosis Loculated pleural effusion DS: Discharge Diagnosis Discharge Diagnosis Plan Loculated R Pleural effusion likely Empyema s/p thoracentesis Pleural fluid glucose 24, ph 7.2 cytology showed lymphocyte predominant effusion immunohistochemistry and cytometry pending Zosyn, blood and sputum cultures Oncology following Pulm recommended transfer to higher level of care patient trasdferred to [facility] Thrombocytosis with anemia Isat 13, iron sucrose 200mg x1 continue aspirin continue follow up at [facility] Leukocytosis likely due to infection continue above workup Gastritis s/p EGD pathology pending Gross exam showed gastritis continue Protonix 40mg bid continue follow up at [facility] or outpatient f/u with GI HTN Continue lisinopril Anxiety Contineu home meds Dermatitis Continue Elidil tranbsfer to [facility] for higher level of care Transfer Discharge Sum: Med Medications Active and Home Medications: Home Medications Saccharomyces boulardii 250 mg capsule (Florastor) 250 mg PO BID 06/19/21 [History Confirmed 12/13/22] acetaminophen 325 mg tablet (Mapap (acetaminophen)) 650 mg PO Q6H #90 tabs 02/23/22 [Rx Confirmed 12/15/22] sennosides 8.6 mg-docusate sodium 50 mg tablet (Senokot-S) 2 tab-cap PO BID #60 tabs 02/23/22 [Rx Confirmed 12/13/22] lisinopril 10 mg tablet 10 mg PO DAILY #30 tabs 10/20/22 [Rx Confirmed 12/15/22] pimecrolimus 1 % topical cream 1 applic topical BID 10/20/22 [History Confirmed 12/15/22] quetiapine 25 mg tablet (Seroquel) 25 mg PO QHS #30 tabs 10/20/22 [Rx Confirmed 12/15/22] cetirizine 10 mg tablet 10 mg PO DAILY allergy symptoms #30 tabs 10/21/22 [Rx Confirmed 12/15/22] ondansetron 8 mg disintegrating tablet 8 mg PO Q8H PRN nausea and vomiting #20 tabs 11/16/22 [Rx Confirmed 12/15/22] cephalexin 250 mg capsule 250 mg PO Q8H 7 days #21 caps 12/13/22 [Rx Confirmed 12/15/22] famotidine 20 mg tablet 20 mg PO DAILY #30 tabs 12/13/22 [Rx Confirmed 12/15/22] mirtazapine 15 mg tablet (Remeron) 7.5 mg PO QHS #30 tabs 12/13/22 [Rx Confirmed 12/15/22] Active Medications Acetaminophen (Acetaminophen 325 Mg Tablet) 650 mg PO Q6H [facility] Last Admin: 12/19/22 12:37 Dose: 650 mg Hydrocodone Bitart/Acetaminophen (Hydrocodone/Acetaminophen (*Crx) 5-325 Mg Tablet) 1 tab PO Q4H PRN PRN Reason: Pain Rated 4-6 Bisacodyl (Bisacodyl 5 Mg Tablet Ec) 20 mg PO ONCE ONE Stop: 12/19/22 18:01 Cephalexin HCl (Cephalexin 250 Mg Capsule) 250 mg PO Q8HR [facility] Last Admin: 12/19/22 14:01 Dose: 250 mg Enoxaparin Sodium (Enoxaparin 40 Mg/0.4 Ml Syringe) 40 mg SUB-Q DAILY [facility] Last Admin: 12/19/22 08:43 Dose: 40 mg Hydroxyzine HCl (Hydroxyzine Hcl 10 Mg Tablet)
[2022-12-20 06:31] LABS: LDH Pleural Fluid 796 U/L; Total Protein Pleural Fluid 4.3 g/dL
[2022-12-22 15:04] LABS: Methylmalonic Acid 250 nmol/L (87-318)
[2022-12-24 10:54] LABS: CALR Exon 9 Mutation Not Detected (Not Detected); CSF3R Exon 14/17 Mutation Not Detected (Not Detected); Clinical Indication Not Provided; JAK2 Exon 12 Mutation Not Detected (Not Detected); JAK2 V617F Mutation Not Detected (Not Detected); MPL Exon 10 Mutation Not Detected (Not Detected); Specimen Source Blood
[2022-12-24 18:37] LABS: Amylase, Pleural Fluid 23 U/L
== END 2022-12-19 17:50 | disposition short-term general hospital (02) | DRG 178 ==
LOC: ANHED 12:29 → ANH3MEDSUR 17:26
PROVIDERS: Internal Medicine Gastroenterology; Internal Medicine Hematology & Oncology; Nurse Practitioner; Nurse Practitioner Family; Admitting Provider Internal Medicine; Emergency Provider Emergency Medicine; PCP Family Medicine; Visit Provider Internal Medicine
PROC: 0DJ08ZZ Inspection of Upper Intestinal Tract, Via Natural or Artificial Opening Endoscopic (ICD-10-PCS; CPT 43235; principal; 2022-12-17 15:00)
DX: J86.9 Pyothorax without fistula (principal); J91.8 Pleural effusion in other conditions classified elsewhere; K29.50 Unspecified chronic gastritis without bleeding; Z20.822 Contact with and (suspected) exposure to COVID-19; I10 Essential (primary) hypertension; L30.9 Dermatitis, unspecified; D72.829 Elevated white blood cell count, unspecified; D50.9 Iron deficiency anemia, unspecified; D75.839 Thrombocytosis, unspecified; F41.8 Other specified anxiety disorders; E78.5 Hyperlipidemia, unspecified; R63.4 Abnormal weight loss; K21.9 Gastro-esophageal reflux disease without esophagitis; N28.1 Cyst of kidney, acquired; Z66 Do not resuscitate; Z68.26 Body mass index [BMI] 26.0-26.9, adult; Z87.891 Personal history of nicotine dependence
CPT/HCPCS: 32555; 36415; 71046; 80048; 80053; 81219; 81270; 81279; 81339; 81479; 82042; 82150; 82607; 82728; 82746; 82945; 83540; 83550; 83615; 83690; 83735; 83921; 83986; 84157; 84311; 84443; 84478; 85025; 85610; 85652; 85730; 86140; 87015; 87040; 87070; 87075; 87102; 87116; 87205; 87206; 87426; 88108; 88184; 88305; 88342; 89051; 96372; 96374; 96375; 96376; 97161; 97165; 99285; A9270; C9803; G0378; J1650; J1756; J2405; J2543; J2704; J7120